=== PATIENT | female | born 1965 ===

== ENCOUNTER → 2021-07-12 15:07 | Outpatient (BNVA) | payer BC, MEDICAID, SELFPAY | PROVIDERS: Visit Provider Family Medicine | DX: I10 Essential (primary) hypertension (principal); Z13.6 Encounter for screening for cardiovascular disorders; Z76.89 Persons encountering health services in other specified circumstances; F43.20 Adjustment disorder, unspecified; G62.9 Polyneuropathy, unspecified; M17.0 Bilateral primary osteoarthritis of knee; Z68.36 Body mass index [BMI] 36.0-36.9, adult; Z71.89 Other specified counseling | CPT/HCPCS: 80053; 85025 ==

== ENCOUNTER 2021-07-16 12:14 | Emergency (ER) | payer BC, MEDICAID, SELFPAY ==
[2021-07-16 12:22] VITALS: BP 148/83; PULSE 88; RESP 17; TEMP 37.6; O2SAT 95
--- NOTE | 2021-07-16 13:55 | CTR_ITS ---
PROCEDURE INFORMATION: Exam: CT Head Without Contrast Exam date and time: 07/16/2021 1:55 PM Age: 56 years old Clinical indication: Pain; Headache not specified; Patient HX: C/O MERCER w unwitnessed seizure during the night TECHNIQUE: Imaging protocol: Computed tomography of the head without contrast. Radiation optimization: All CT scans at this facility use at least one of these dose optimization techniques: automated exposure control; mA and/or kV adjustment per patient size (includes targeted exams where dose is matched to clinical indication); or iterative reconstruction. COMPARISON: No relevant prior studies available. RADIATION DOSE METRICS: Total DLP (mGy-cm): 814.61 FINDINGS: Brain: Normal. No hemorrhage. Unremarkable white matter. No mass effect. Cerebral ventricles: No ventriculomegaly. Paranasal sinuses: Visualized sinuses are unremarkable. No fluid levels. Mastoid air cells: Visualized mastoid air cells are well aerated. Bones/joints: Unremarkable. No acute fracture. Soft tissues: Unremarkable. CT/CT head wo con* [id number] IMPRESSION: No acute intracranial abnormality. Radiation Dose CTDIVOL = (mGy): DLP = 814.61 (mGy-cm)
--- NOTE | 2021-07-16 13:55 | ECG_ITS ---
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 Measurements Intervals Ragan Rate: 68 P: 58 CO: 142 QRS: 28 QRSD: 87 T: 23 QT: 410 QTc: 439 Interpretive Statements SINUS RHYTHM WITH SINUS ARRHYTHMIA NONSPECIFIC T-WAVE ABNORMALITY No previous ECG available for comparison Electronically Signed On 07-16-2021 19:35:04 CDT by Mckay Ragland M.D. [id number]
--- NOTE | 2021-07-16 13:55 | XR_ITS ---
WS: [id number] Portable AP upright chest, 07/16/2021 Clinical Data: seizure Comparison: None. Findings: No nodules, masses or effusions are seen. The heart is normal. The pulmonary vascularity is not increased. No pneumonia or pneumothorax is seen. The aortic arch and descending aorta are minima lly tortuous. XR/XR chest 1V portable [id number] Impression: Atherosclerosis.
--- NOTE | 2021-07-16 14:03 | ED_ITS ---
HPI - Seizure General: Chief Complaint: General Medical Stated Complaint: BLEEDING FROM MOUTH Time Seen by Provider: 07/16/21 12:55 History of Present Illness: HPI Narrative: Patient is a 56-year-old female past medical history of migraines and seizure disorder. Her last seizure was 2016 when they were living in [place]. She has not been on medicines for last 2 years. Her niece went in to check on his morning about 11:00 had a hard time waking her up. When she did get her out of bed she noticed that she had blood in her mouth and 2 small abrasions on the side of her tongue. She returned to her normal mentation soon afterwards. Stated that she has had some occipital pain and all of her head pain which is chronic for her. She has not had any fevers chills nausea vomiting shortness of breath altered mental status or syncope. She does not remember the seizure her previous seizure was a generalized tonic- clonic she was seen in the hospital have 2 in short succession. History was assisted with her son who translated patient does not speak [place] Citizen MD complaint: seizure Onset (ago): hour(s) (6) Description of Episode: bladder incontinence, bowel incontinence and post-event confusion Review of Systems General: Reports: 10 or more systems reviewed and unremarkable except in HPI and below PFSH ED PFSH: Medical History Episcleritis of both eyes Gout Hx of seizure disorder Neuropathy Surgical History History of 3 sections Family History Mother Chronic kidney disease (CKD), Onset Age: 77 Father Cancer throat cancer Brother Cancer liver cancer Brother Cancer colan cancer Social History Smoking and tobacco status: never smoked Alcohol intake: never Household members: children Housing: House Marital status: / Number of children: 3 Number of grandchildren: 7 Highest education level completed: 7th Grade service: No Current occupational status: unemployed Current gender identity: Female Physical Exam Const: COMMON NORMALS: no acute distress, average body habitus and patient oriented x3 EXAM LIMITATIONS: no altered mental status HENMT: COMMON NORMALS: normocephalic and atraumatic HEAD & SCALP: normal to inspection, normocephalic and atraumatic Eye: COMMON NORMALS: Equal, round and reactive pupils present and EOMs intact bilaterally PUPIL: Yes Equal, round and reactive pupils present Neck/C-Spine: COMMON NORMALS: full ROM; negative for no meningeal signs CERVICAL SPINE: Yes cervical ROM normal and No Cervical spine tenderness Resp: COMMON NORMALS: normal respiratory effort, No retractions and No use of accessory muscles Cardio: COMMON NORMALS: regular rate, regular rhythm and No murmurs present (Cardio) RATE: regular rate RHYTHM: regular rhythm GI: COMMON NORMALS: Normal to inspection, nondistended, normoactive bowel sounds present INSPECTION: Yes normal to inspection AUSCULTATION: Yes normoactive bowel sounds Extremity: COMMON NORMALS: normal to inspection Neuro: COMMON NORMALS: patient oriented x3, moves all extremities and no focal motor deficits MENINGEAL SIGNS: No no meningeal signs CRANIAL NERVES: Yes CN normal except as noted SPEECH: speech normal GAIT: Yes Normal gait present SENSORY EXAM: Yes Normal double simultaneous stimulation for sensation MOTOR EXAM: 5/5 motor strength present throughout Psych: COMMON NORMALS: mental status grossly normal Skin: COMMON NORMALS: no rashes or lesions noted GENERAL SKIN EXAM: no rashes or lesions noted Course ED course: Patient did well no other seizure like activity or other neurological changes. CT of the head was normal as was her laboratory work-up. Discussed with patient return precautions and placed referral to neurology. We will have him follow-up with her primary care provider in 3 to 5 days they are appropriate for discharge at this time Vital Signs: Vital signs: Vital Signs Temperature 99.6 F 07/16/21 12:22 Pulse Rate 70 07/16/21 14:04 Respiratory Rate 16 07/16/21 14:04 Blood Pressure 155/89 07/16/21 14:04 Pulse Oximetry 100 07/16/21 14:04 MDM - Seizure MDM Narrative: Medical decision making narrative: Patient is a 56-year-old female here with for seizure in 3 years. She is not currently taking a medicine. Has not had any seizure activity since then. Given the length of time between seizures I think it is appropriate to going work-up is a for seizure. She is mentating normally now has not shown any seizure-like activity is back to her baseline with no prolonged postictal period. We will get a CT EKG chest x-ray and general labs on her. Will most likely not starting medicines on her today but will set her up with outpatient neurology Differential Diagnosis: Seizure Differential Diagnosis: Likely intractable seizure disorder, febrile convulsion, generalized seizure and new onset seizure Lab Data: Labs: Lab Results 07/16/21 07/16/21 Range/Units 14:20 14:20 WBC 7.6 (4.0-10.0) 10^3/ uL RBC 4.74 (4.1-5.3) 10^6/u L Hgb 14.1 (11.5-15.3) g/dL Hct 42.8 (37.0-47.0) % MCV 90.3 (81-99) fl MCH 29.7 (28.0-34.0) pg MCHC 32.9 (30.0-36.0) g/dL RDW 13.2 (12.1-15.1) % Plt Count 223 (130-400) 10^3/c mm MPV 10.1 (7.4-10.4) fL Neut % (Auto) 84.3 % Lymph % (Auto) 9.1 % [place] % (Auto) 5.7 % Eos % (Auto) 0.5 % Baso % (Auto) 0.1 % Neut # (Auto) 6.42 (1.8-7.7) 10^3/u L Lymph # (Auto) 0.7 L (0.8-4.8) 10^3/u L [place] # (Auto) 0.4 (0.2-0.9) 10^3/u L Eos # (Auto) 0.0 (0.0-0.8) 10^3/u L Baso # (Auto) 0.0 (0.0-0.1) 10^3/u L Nucleated RBC % (a uto) 0 % Nucleated RBCs # 0.0 /100WBC Sodium 139 (136-145) mmol/L Potassium 4.3 (3.5-5.1) mmol/L Chloride 107 (98-107) mmol/L Carbon Dioxide 23 (22-29) mmol/L Anion Gap 13.3 (5-19) BUN 11 (6-20) mg/dL Creatinine 0.7 (0.5-0.9) mg/dL GFR Calculation 86.2 L (90-130) mL/min Glucose 117 H (65-115) mg/dL Calculated Osmolal ity 288 (285-295) mOsm/k g Calcium 8.9 (8.5-10.5) mg/dL Magnesium 2.2 (1.7-2.3) mg/dL Total Bilirubin 0.2 (0.15-1.2) mg/dL AST 23 (0-32) U/L ALT 16 (0-33) U/L Alkaline Phosphata se 86 (35-105) IU/L Total Protein 6.9 (6.6-8.7) g/dL Albumin 4.0 (3.5-5.2) g/dL Globulin 2.9 (1.3-4.6) g/dL EKG Data^: EKG 1: Attestation: I personally reviewed and interpreted this EKG as follows: EKG interpretation date: 07/16/21 EKG interpretation time: 15:59 Prior EKG tracings: not available for review Interpretation: Sinus rhythm normal sinus rhythm no evidence of ischemia or infarct good R wave progression normal axis ease normal PA intervals Discharge Plan Discharge Patient Disposition: Home Clinical Impression: Seizure Condition: Stable Prescriptions: No Action gabapentin 800 mg tablet 800 mg PO DAILY Qty: 90 RF: 0 meloxicam [Mobic] 15 mg tablet 15 mg PO DAILY Qty: 30 RF: 0 atenolol 25 mg tablet 25 mg PO DAILY Qty: 30 RF: 0 ficdluaaxa-ogdlhocfizzeg-rmsj 50-325-40 mg tablet 1 tab PO BID PRN (Reason: pain) 30 Days Qty: 60 RF: 0 fluorometholone 0.1 % drops,suspension 2 drp ophthalmic (eye) .once daily 30 Days Qty: 10 RF: 2 furosemide 20 mg tablet 20 mg PO DAILY 30 Days Qty: 30 RF: 0 citalopram [Celexa] 10 mg tablet 10 mg PO DAILY Qty: 30 RF: 0 Discharge Orders: Discharge ED (Routine); Ordered 07/16/21 Ordered By: Louie Brown Referrals: Keren Mclaughlin MD [Physician] - 4-7 days Lianna Hickman DO [Primary Care Provider] - 1-3 days Louie Brown MD [Emergency Provider] - Discharge Activity: Resume usual activity Patient Instructions: Seizures Activity Restrictions/Additional Instructions: follow-up with your primary physician in 3 to 5 days. You should be getting a call from a neurologist for follow-up appointment. If you do not hear within 7 days contact your primary care provider. Return the emergency department with any more seizures particularly if they last for more than 5 minutes or if she is not back to her normal self after about 30 minutes after his seizure or if there are any changes. Coding Level of Care Code ED Appliance Mechanic for Rick Fwd Exam Comprehensive
[2021-07-16 14:04] VITALS: BP 155/89; PULSE 70; RESP 16; O2SAT 100
[2021-07-16 14:26] LABS: Basophils % 0.1 %; Eosinophils % 0.5 %; Hematocrit 42.8 % (37.0-47.0); Hemoglobin 14.1 g/dL (11.5-15.3); Lymphocytes # 0.7 10^3/uL (0.8-4.8); Lymphocytes % 9.1 %; Mean Corpuscular HGB Conc 32.9 g/dL (30.0-36.0); Mean Corpuscular Hemoglobin 29.7 pg (28.0-34.0); Mean Corpuscular Volume 90.3 fl (81-99); Mean Platelet Volume 10.1 fL (7.4-10.4); Monocytes # 0.4 10^3/uL (0.2-0.9); Monocytes % 5.7 %; Neutrophils # 6.42 10^3/uL (1.8-7.7); Neutrophils % 84.3 %; Nucleated Red Blood Cells % 0 %; Platelet Count 223 10^3/cmm (130-400); Red Blood Count 4.74 10^6/uL (4.1-5.3); Red Cell Distribution Width 13.2 % (12.1-15.1); White Blood Count 7.6 10^3/uL (4.0-10.0)
[2021-07-16 14:51] LABS: Alanine Aminotransferase 16 U/L (0-33); Alkaline Phosphatase 86 IU/L (35-105); Aspartate Amino Transferase 23 U/L (0-32); Blood Urea Nitrogen 11 mg/dL (6-20); Calcium 8.9 mg/dL (8.5-10.5); Carbon Dioxide 23 mmol/L (22-29); Chloride 107 mmol/L (98-107); Creatinine Clr Calc Pharmacy 93.1271; Globulin 2.9 g/dL (1.3-4.6); Glomerular Filtration Rate 86.2 mL/min (90-130); Glucose 117 mg/dL (65-115); Magnesium 2.2 mg/dL (1.7-2.3); Osmolality Calculated 288 mOsm/kg (285-295); Sodium 139 mmol/L (136-145); Total Bilirubin 0.2 mg/dL (0.15-1.2); Total Protein 6.9 g/dL (6.6-8.7)
[2021-07-16 15:01] LABS: Anion Gap 13.3 (5-19); Potassium 4.3 mmol/L (3.5-5.1)
[2021-07-16 16:24] VITALS: BP 164/75; PULSE 61; RESP 16; O2SAT 95
== END 2021-07-16 16:25 | disposition home or self-care (01) ==
PROVIDERS: Emergency Provider Family Medicine; PCP Family Medicine
DX: G40.909 Epilepsy, unspecified, not intractable, without status epilepticus (principal)
CPT/HCPCS: 70450; 71045; 80053; 83735; 85025; 93005; 99283

== ENCOUNTER → 2021-08-10 14:49 | Outpatient (BNVA) | payer BC, MEDICAID, SELFPAY | PROVIDERS: PCP Family Medicine; Visit Provider Family Medicine | DX: F43.21 Adjustment disorder with depressed mood (principal); Z09 Encounter for follow-up examination after completed treatment for conditions other than malignant neoplasm; M17.0 Bilateral primary osteoarthritis of knee; G62.9 Polyneuropathy, unspecified; I10 Essential (primary) hypertension; Z86.69 Personal history of other diseases of the nervous system and sense organs | CPT/HCPCS: 84550 ==

== ENCOUNTER → 2021-08-30 14:04 | Outpatient (BNVA) | payer BC, MEDICAID, SELFPAY | PROVIDERS: PCP Family Medicine; Visit Provider Nurse Practitioner | DX: G40.909 Epilepsy, unspecified, not intractable, without status epilepticus (principal); E66.3 Overweight; Z68.38 Body mass index [BMI] 38.0-38.9, adult | CPT/HCPCS: 99204 ==

== ENCOUNTER → 2021-11-08 11:55 | Outpatient (BNVA) | payer BC, MEDICAID, SELFPAY | PROVIDERS: PCP Family Medicine; Visit Provider Family Medicine | DX: I10 Essential (primary) hypertension (principal) | CPT/HCPCS: 80061; 82043 ==

== ENCOUNTER 2022-04-01 14:14 | Emergency (ER) | payer BC, MEDICAID, SELFPAY ==
[2022-04-01 14:35] VITALS: BP 133/65; PULSE 88; RESP 18; TEMP 37.7; O2SAT 97
[2022-04-01 14:49] VITALS: BP 195/92; PULSE 48; RESP 18; O2SAT 96
--- NOTE | 2022-04-01 14:50 | XR_ITS ---
WS: [id number] Portable AP upright chest, 04/01/2022 Clinical Data: fever Comparison: Portable chest, 07/16/2021 Findings: No nodules, masses or effusions are seen. The heart is normal. The pulmonary vascularity is not increased. No pneumonia or pneumothorax is seen. The aortic arch and descending thoracic aorta a re minimally tortuous. XR/XR chest 1V portable [id number] Impression: Negative chest.
--- NOTE | 2022-04-01 14:52 | W.ED.NAVMDI ---
HPI - Nausea/Vomiting/Diarrhea General: Chief complaint: Nausea/Vomiting/Diarrhea Stated complaint: body tingly, headache, fever, sore throat Time Seen by Provider: 04/01/22 14:44 History of Present Illness: Patient is a 56-year-old female comes to the ED with fever, nausea and vomiting. Patient's symptoms started 4 days ago. She has nasal congestion and drainage, dry cough, sore throat, body aches. She is currently nauseous and has vomited 4 times today and vomited 4 times yesterday. Associated nausea: Yes Associated symtoms: Reports nausea; Denies change in vision, chest pain, dysuria, fatigue, headache(s) or palpitations Review of Systems Const: Reports: fever(s), chills and body aches; Denies: fatigue Eyes: Denies: change in vision or eye discomfort ENMT: Reports: throat pain, nasal discharge and nasal congestion; Denies: odynophagia Card: Denies: chest pain, palpitations, edema, swelling of feet/ankles, dyspnea on exertion or orthopnea Resp: Reports: non-productive cough; Denies: dyspnea or productive cough GI: Reports: nausea and vomiting; Denies: abdominal pain, diarrhea, constipation or hematochezia : Denies: flank pain, dysuria or hematuria Musc: Denies: neck pain, back pain or extremity swelling Skin/Breast: Denies: rash or new lesions Neuro: Denies: headache(s), numbness in extremities or weakness in extremities PFSH ED PFSH: Medical History Epilepsy Episcleritis of both eyes Gout Hx of seizure disorder Neuropathy Surgical History History of 3 sections Family History Mother Chronic kidney disease (CKD), Onset Age: 77 Father Cancer throat cancer Brother Cancer liver cancer Brother Cancer colan cancer Social History Smoking and tobacco status: never smoked Alcohol intake: never Household members: children Housing: House Marital status: / Number of children: 3 Number of grandchildren: 7 Highest education level completed: 7th Grade service: No Current occupational status: unemployed History of recent travel: No Current gender identity: Female Physical Exam Const: COMMON NORMALS: patient oriented x3 and alert GENERAL APPEARANCE: cooperative HENMT: COMMON NORMALS: normocephalic HEAD & SCALP: normocephalic NOSE: Nasal discharge present clear MOUTH: moist mucous membranes abnormal Details: parched THROAT: posterior oropharynx normal and uvula midline Eye: COMMON NORMALS: Equal, round and reactive pupils present PUPIL: Yes Equal, round and reactive pupils present Neck/C-Spine: COMMON NORMALS: supple GENERAL: Yes normal visual inspection Resp: COMMON NORMALS: normal respiratory effort, No retractions, No use of accessory muscles and clear to auscultation bilaterally AUSCULTATION: clear to auscultation bilaterally Cardio: COMMON NORMALS: regular rate, regular rhythm, S1 normal heart sound present, S2 normal heart sound present, No gallops present (Cardio), No clicks present (Cardio), No murmurs present (Cardio) and Peripheral pulses 2+ throughout RATE: regular rate RHYTHM: regular rhythm HEART SOUNDS: S1 normal heart sound present and S2 normal heart sound present PERIPHERAL PULSES: Peripheral pulses 2+ throughout GI: COMMON NORMALS: Normal to inspection, nondistended, normoactive bowel sounds present, Soft to palpation, non-tender and no masses PALPATION: Yes Soft to palpation : COMMON NORMALS: Yes no CVA tenderness BLADDER/KIDNEY EXAM: Yes no CVA tenderness Back/Pelvis: COMMON NORMALS: no CVA tenderness Extremity: COMMON NORMALS: normal to inspection and no pedal edema Neuro: COMMON NORMALS: patient oriented x3 and moves all extremities SENSORIUM/ORIENTATION: Yes alert Skin: GENERAL SKIN EXAM: dry skin Course Vital Signs: Vital signs: Vital Signs Temperature 99.8 F H 04/01/22 14:35 Pulse Rate 93 04/01/22 17:21 Respiratory Rate 18 04/01/22 14:49 Blood Pressure 112/60 04/01/22 17:21 Pulse Oximetry 94 04/01/22 17:21 MDM - Nausea/Vomiting/Diarrhea Medical Decision Making Patient is a 56-year-old female comes to the ED with nausea and vomiting. Patient also has fever and body aches. Vitals are stable. Patient had some dry oral mucous membranes but rest of exam was benign. Chest x-ray showed no acute findings. CBC and CMP were unremarkable. Influenza and COVID test were negative. Patient was given 1 L of IV fluids and antinausea meds and her symptoms improved. She was able to keep p.o. fluids down and was stable for discharge home. Patient was diagnosed with viral syndrome and mild dehydration and sent home with a prescription of Zofran for nausea. She is told to follow-up with her PCP in the next week for reevaluation. Return to ED precautions given. Patient understood and agreed with plan. Lab Data I reviewed the patient's lab results. : 04/01/22 15:15 04/01/22 15:15 Radiology Impressions Chest X-Ray 04/01/22 14:50 Impression: Negative chest. Laboratory Results WBC 10.1 10^3/uL (4.0-10.0) H 04/01/22 15:15 RBC 4.92 10^6/uL (4.1-5.3) 04/01/22 15:15 Hgb 14.6 g/dL (11.5-15.3) 04/01/22 15:15 Hct 45.0 % (37.0-47.0) 04/01/22 15:15 MCV 91.5 fl (81-99) 04/01/22 15:15 MCH 29.7 pg (28.0-34.0) 04/01/22 15:15 MCHC 32.4 g/dL (30.0-36.0) 04/01/22 15:15 RDW 13.9 % (12.1-15.1) 04/01/22 15:15 Plt Count 268 10^3/cmm (130-400) 04/01/22 15:15 MPV 10.1 fL (7.4-10.4) 04/01/22 15:15 Neut % (Auto) 83.6 % 04/01/22 15:15 Lymph % (Auto) 6.6 % 04/01/22 15:15 [place] % (Auto) 8.1 % 04/01/22 15:15 Eos % (Auto) 0.9 % 04/01/22 15:15 Baso % (Auto) 0.4 % 04/01/22 15:15 Neut # (Auto) 8.45 10^3/uL (1.8-7.7) H 04/01/22 15:15 Lymph # (Auto) 0.7 10^3/uL (0.8-4.8) L 04/01/22 15:15 [place] # (Auto) 0.8 10^3/uL (0.2-0.9) 04/01/22 15:15 Eos # (Auto) 0.1 10^3/uL (0.0-0.8) 04/01/22 15:15 Baso # (Auto) 0.0 10^3/uL (0.0-0.1) 04/01/22 15:15 Nucleated RBC % (auto) 0 % 04/01/22 15:15 Nucleated RBCs # 0.0 /100WBC 04/01/22 15:15 Sodium 137 mmol/L (136-145) 04/01/22 15:15 Potassium 4.0 mmol/L (3.5-5.1) 04/01/22 15:15 Chloride 102 mmol/L (98-107) 04/01/22 15:15 Carbon Dioxide 24 mmol/L (22-29) 04/01/22 15:15 Anion Gap 15.0 (5-19) 04/01/22 15:15 BUN 11 mg/dL (6-20) 04/01/22 15:15 Creatinine 1.0 mg/dL (0.5-0.9) H 04/01/22 15:15 GFR Calculation 57.1 mL/min (90-130) L 04/01/22 15:15 Glucose 103 mg/dL (65-115) 04/01/22 15:15 Calculated Osmolality 284 mOsm/kg (285-295) L 04/01/22 15:15 Calcium 10.1 mg/dL (8.5-10.5) 04/01/22 15:15 Total Bilirubin 0.3 mg/dL (0.15-1.2) 04/01/22 15:15 AST 21 U/L (0-32) 04/01/22 15:15 ALT 19 U/L (0-33) 04/01/22 15:15 Alkaline Phosphatase 119 IU/L (35-105) H 04/01/22 15:15 Total Protein 7.7 g/dL (6.6-8.7) 04/01/22 15:15 Albumin 4.6 g/dL (3.5-5.2) 04/01/22 15:15 Globulin 3.1 g/dL (1.3-4.6) 04/01/22 15:15 Lipase 22 U/L (13-60) 04/01/22 15:15 Nasal Influ A H1 2009 PCR Not detected (NOT DETECT) 04/01/22 15:40 Coronavirus 229E (PCR) Not detected (NOT DETECT) 04/01/22 15:40 Human Metapneumovir PCR Not detected (NOT DETECT) 04/01/22 19:58 Influenza A (H1) PCR Not detected (NOT DETECT) 04/01/22 15:40 Influenza A (H3) PCR Not detected (NOT DETECT) 04/01/22 15:40 Influenza Type A Ag Cancelled 04/01/22 15:40 Influenza Type A (PCR) Not detected (NOT DETECT) 04/01/22 15:40 Influenza Type B Ag Cancelled 04/01/22 15:40 Influenza Type B (PCR) Not detected (NOT DETECT) 04/01/22 15:40 Entero/Rhino (PCR) Detected (NOT DETECT) A 04/01/22 19:58 SARS-CoV-2 (PCR) Not detected (NOT DETECT) 04/01/22 15:40 Group A Strep Rapid Negative (Negative) 04/01/22 15:40 Discharge Plan Discharge Patient Disposition: Home Clinical Impression: Viral syndrome, Mild dehydration Condition: Stable Prescriptions: New ondansetron 4 mg tablet,disintegrating 4 mg PO Q8H PRN (Reason: nausea and vomiting) Qty: 20 0RF No Action txesqiyonk-dvserpdxayebw-vfqi 50-325-40 mg tablet 1 tab PO BID PRN (Reason: pain) 30 Days Qty: 60 0RF fluorometholone 0.1 % drops,suspension 2 drp ophthalmic (eye) .once daily 30 Days Qty: 10 2RF atenolol 25 mg tablet 25 mg PO DAILY Qty: 90 1RF furosemide 20 mg tablet 20 mg PO DAILY 30 Days Qty: 90 1RF gabapentin 800 mg tablet 800 mg PO DAILY Qty: 90 1RF citalopram [Celexa] 20 mg tablet 20 mg PO DAILY Qty: 90 1RF diclofenac sodium 50 mg tablet,delayed release (DR/EC) 50 mg PO BID 90 Days Qty: 180 1RF topiramate [Topamax] 50 mg tablet 50 mg PO BID Qty: 120 6RF Rx Instructions: 1/2 tab twice daily for 1 week; then 1 tab twice daily for 1 week then 2 tabs twice daily thereafter omeprazole 40 mg capsule,delayed release(DR/EC) 40 mg PO DAILY Qty: 90 0RF Discharge Orders: Discharge ED (Routine); Ordered 04/01/22 Ordered By: Aries Gardner Referrals: Lianna Hickman DO [Primary Care Provider] - Discharge Diet: Regular Discharge Activity: Increase activity as tolerated Patient Instructions: Viral Syndrome (ED) Activity Restrictions/Additional Instructions: Follow-up with medical provider as directed in the next week for reevaluation. Call [facility] tomorrow morning to find out COVID and influenza test results. Make sure to drink plenty of fluids and stay hydrated. Take medications as prescribed. Return to the ER or your medical provider if condition worsens. Please read and understand discharge instructions. Thank you for choosing [facility] for your healthcare needs today. Please realize this is an emergency room and that we are providing you with a medical screening exam and this may not be complete and all inclusive of all the testing and or work up that you may need to determine your ailment or severity of your illness. It is very important that you follow up as instructed or that you return to the Emergency Department should you have concerns or if your condition changes or worsens in any way. Coding Level of Care Code ED Appeals Specialist for Rick Washburn Exam Comprehensive
[2022-04-01 15:22] LABS: Basophils % 0.4 %; Eosinophils # 0.1 10^3/uL (0.0-0.8); Eosinophils % 0.9 %; Hemoglobin 14.6 g/dL (11.5-15.3); Lymphocytes # 0.7 10^3/uL (0.8-4.8); Lymphocytes % 6.6 %; Mean Corpuscular HGB Conc 32.4 g/dL (30.0-36.0); Mean Corpuscular Hemoglobin 29.7 pg (28.0-34.0); Mean Corpuscular Volume 91.5 fl (81-99); Mean Platelet Volume 10.1 fL (7.4-10.4); Monocytes # 0.8 10^3/uL (0.2-0.9); Monocytes % 8.1 %; Neutrophils # 8.45 10^3/uL (1.8-7.7); Neutrophils % 83.6 %; Nucleated Red Blood Cells % 0 %; Platelet Count 268 10^3/cmm (130-400); Red Blood Count 4.92 10^6/uL (4.1-5.3); Red Cell Distribution Width 13.9 % (12.1-15.1); White Blood Count 10.1 10^3/uL (4.0-10.0)
[2022-04-01] MEDS: ondansetron 2 mg/ML SDV 2 mL 4 MG IVP (15:41)
[2022-04-01] MEDS: sodium chloride 0.9% 1,000 ML 999 ML IV (15:41)
[2022-04-01 16:12] LABS: Alanine Aminotransferase 19 U/L (0-33); Albumin Level 4.6 g/dL (3.5-5.2); Alkaline Phosphatase 119 IU/L (35-105); Aspartate Amino Transferase 21 U/L (0-32); Blood Urea Nitrogen 11 mg/dL (6-20); Calcium 10.1 mg/dL (8.5-10.5); Carbon Dioxide 24 mmol/L (22-29); Chloride 102 mmol/L (98-107); Globulin 3.1 g/dL (1.3-4.6); Glomerular Filtration Rate 57.1 mL/min (90-130); Glucose 103 mg/dL (65-115); Lipase 22 U/L (13-60); Osmolality Calculated 284 mOsm/kg (285-295); Sodium 137 mmol/L (136-145); Total Bilirubin 0.3 mg/dL (0.15-1.2); Total Protein 7.7 g/dL (6.6-8.7)
[2022-04-01 17:21] VITALS: BP 112/60; PULSE 93; O2SAT 94
[2022-04-01 17:49] LABS: Rapid Strep A Test Negative (Negative)
[2022-04-01 19:33] LABS: Adenovirus Not Detected (NOT DETECT); Chlamydia Pneumoniae Not Detected (NOT DETECT); Coronavirus 229E,HKU1,NL63,OC4 Not Detected (NOT DETECT); Human Metapneumovirus Not Detected (NOT DETECT); Human Rhinovirus/Enterovirus Detected (NOT DETECT); Influenza A Not Detected (NOT DETECT); Influenza A H1 Not Detected (NOT DETECT); Influenza A H1-2009 Not Detected (NOT DETECT); Influenza A H3 Not Detected (NOT DETECT); Influenza B Not Detected (NOT DETECT); Mycoplasma Pneumoniae Not Detected (NOT DETECT); Parainfluenza Virus Type 1 Not Detected (NOT DETECT); Parainfluenza Virus Type 2 Not Detected (NOT DETECT); Parainfluenza Virus Type 3 Not Detected (NOT DETECT); Parainfluenza Virus Type 4 Not Detected (NOT DETECT); Respiratory Syncytial Virus A Not Detected (NOT DETECT); Respiratory Syncytial Virus B Not Detected (NOT DETECT); SARS-COV-2 Not Detected (NOT DETECT)
[2022-04-01 19:58] LABS: Human Metapneumovirus Not Detected (NOT DETECT); Human Rhinovirus/Enterovirus Detected (NOT DETECT); Results from Genmark
[2022-04-01 19:59] LABS: Results from Genmark
== END 2022-04-01 17:23 | disposition home or self-care (01) ==
PROVIDERS: Emergency Provider Physician Assistant; PCP Family Medicine
DX: B34.9 Viral infection, unspecified (principal); E86.0 Dehydration; G40.909 Epilepsy, unspecified, not intractable, without status epilepticus
CPT/HCPCS: 71045; 80053; 83690; 85025; 87081; 87631; 87635; 87801; 87880; 96361; 96374; 99284; J2405; J7030

== ENCOUNTER 2022-10-31 09:42 | Day surgery (SDC) | payer BC, MEDICAID, SELFPAY ==
[2022-10-28 14:37] VITALS: BMI 36.6
[2022-10-31 10:11] VITALS: BP 142/80; PULSE 59; RESP 16; TEMP 36.1; O2SAT 98
[2022-10-31] MEDS: sodium chloride 0.9% 1,000 ML 30 ML IV (10:20)
--- NOTE | 2022-10-31 10:36 | ANES.PREANE2 ---
Pre-Anesthetic Assessment Height/Weight: Height 1.57 m Weight 90.718 kg Temp Pulse Resp BP Pulse Ox O2 Del Method 96.9 F L 59 L 16 142/80 98 10/31/22 10:11 10/31/22 10:11 10/31/22 10:11 10/31/22 10:11 10/31/22 10:11 10/31/22 10:11 Preop Diagnosis: History of colon polyps Operation Date: 10/31/22 11:00 Proposed Procedures p Colonoscopy 54083,Z86.010(Not Applicable) - Tanner Salgado MD Was Beta Harvey taken within 24 hours: Yes Last intake: Intake Last Liquid Date 10/30/22 Last Liquid Time 00:00 Last Solid Date 10/29/22 Last Solid Time 00:00 Social No alcohol and No tobacco Exam alert, oriented x 3, clear to auscultation bilaterally and regular rate & rhythm Nonenglish speaking Airway Submandibular: within normal limits Cervical ROM: within normal limits Mallampati: Class II Dentition: full History/ROS No significant history except as noted and No significant complaints Pulmonary None reported CV/HEM Hypertension None reported Hepatic None reported GI None reported Metabolic None reported Musc/skel None reported Neuropsych Seizure none recently Anesthetic Plan ASA status: 2 Anesthesia: Anesthesia Evaluation and MAC Risk of > 500 ml blood loss (7ml/kg in children): No Medications/Allergies Home Medications Medication Instructions Recorded Confirmed Last Taken Type fluorometholone 0.1 % eye 2 drp ophthalmic (eye) .once daily 07/13/21 10/31/22 10/30/22 Rx drops,suspension 30 days #10 mL ondansetron 4 mg disintegrating 4 mg PO Q8H PRN nausea and 04/01/22 10/31/22 10/30/22 Rx tablet vomiting #20 tabs atenolol 25 mg tablet 25 mg PO DAILY #90 tabs 07/22/22 10/31/22 10/30/22 Rx adbhbytnhs-vrvzhqsbkqiaz-zqtnaijr 1 tab PO BID PRN pain 30 days #60 07/22/22 10/31/22 10/30/22 Rx 50 mg-325 mg-40 mg tablet tabs citalopram 20 mg tablet (Celexa) 20 mg PO DAILY #90 tabs 08/26/22 12/05/22 12/04/22 Rx diclofenac sodium 50 mg 50 mg PO BID 90 days #180 tabs 07/22/22 10/31/22 10/30/22 Rx tablet,delayed release furosemide 20 mg tablet 20 mg PO DAILY 90 days #90 tabs 07/22/22 10/31/22 10/30/22 Rx gabapentin 800 mg tablet See Rx Instructions .Route 07/22/22 10/31/22 10/30/22 Rx .COMPLEX 90 days #90 tabs omeprazole 40 mg capsule,delayed 40 mg PO DAILY #90 caps 07/22/22 10/31/22 10/30/22 Rx release topiramate 100 mg tablet 100 mg PO BID #180 tabs 07/22/22 10/31/22 10/30/22 Rx Allergies Allergy/AdvReac Type Severity Reaction Status Date / Time No Known Allergies Allergy Verified 10/28/22 14:35 Current Medications Generic Name Dose Route Start Last Admin Trade Name Freq PRN Reason Stop Dose Admin Sodium Chloride 1,000 mls @ 30 mls/hr 10/31/22 10:00 10/31/22 10:20 Sodium Chloride 0.9% IV 30 mls/hr .Q24H RACHEL Administration PFSH Anesthesia Medical History Epilepsy Episcleritis of both eyes Gout Hx of seizure disorder Neuropathy Surgical History History of 3 sections Family History Mother Chronic kidney disease (CKD), Onset Age: 77 Father Cancer throat cancer Brother Cancer liver cancer Brother Cancer colan cancer Social History Smoking and tobacco status: never smoked Alcohol intake: never Household members: children Housing: House Marital status: / Number of children: 3 Number of grandchildren: 7 Highest education level completed: 7th Grade service: No Current occupational status: unemployed History of recent travel: No Current gender identity: Female Data Anesthesia Cardiac Studies: No Data to Display
--- NOTE | 2022-10-31 10:51 | W.PM.OPSFHP ---
Same Day Surgery H&P Indication for Procedure/HPI DATE OF PROCEDURE: October 31, 2022 CHIEF COMPLAINT/INDICATIONFOR SURGICAL PROCEDURE: Colon polyps PREOP DIAGNOSIS: History of colon polyps PLANNED PROCEDURE: Operation Date: 10/31/22 11:00 Proposed Procedures p Colonoscopy [id number],Z86.010(Not Applicable) - Tanner Salgado MD 09/05/2022 This is a pleasant 57 years old female patient comes today escorted by her son and daughter, to discuss surveillance colonoscopy.? 5 years ago patient had a colonoscopy in [place] and had colon polyps removed.? Denies personal history of colon cancer or bleeding per rectum yet she does report her brother had history of colon cancer age of 57. Patient speaks little Czech and her son does translate for her. 10/31/2022 Patient comes today for surveillance colonoscopy ROS All systems have been reviewed negative except as for the above or per problem list. Medications/Allergies* Allergies/Adverse Reactions Allergy/AdvReac Type Severity Reaction Status Date / Time No Known Allergies Allergy Verified 10/31/22 10:51 Current Medications: Generic Name Dose Route Start Last Admin Trade Name Freq PRN Reason Stop Dose Admin Sodium Chloride 1,000 mls @ 30 mls/hr 10/31/22 10:00 10/31/22 10:20 Sodium Chloride 0.9% IV 30 mls/hr .Q24H RACHEL Administration Pertinent History/Comorbid Conditions* Medical History (Updated 07/25/22 @ 06:44 by Lianna Hickman DO) Epilepsy Episcleritis of both eyes Gout Hx of seizure disorder Neuropathy Surgical History (Updated 07/12/21 @ 14:24 by Lianna Hickman DO) History of 3 sections Family History (Updated 07/12/21 @ 14:01 by Jessenia Song) Brother Brother Father Mother Chronic kidney disease (CKD) Mother, Onset Age: 77 Cancer Father throat cancer Brother liver cancer Brother colan cancer Social History Smoking and tobacco status: never smoked Alcohol intake: never Household members: children Housing: House Marital status: / Number of children: 3 Number of grandchildren: 7 Highest education level completed: 7th Grade service: No Current occupational status: unemployed History of recent travel: No Current gender identity: Female Pertinent Exam Findings alert, oriented x 3, regular rate & rhythm and procedure specific exam findings (Abdominal exam nontender nondistended soft) Recommendations Surgery/Procedure today (Colonoscopy with possible biopsy) Coding Level of Care Code Acute Shipping And Receiving Coordinator for Rick Washburn
[2022-10-31 11:13] VITALS: BP 93/62; PULSE 67; RESP 20; TEMP 36.3; O2SAT 96
[2022-10-31 11:26] VITALS: BP 114/68; PULSE 62; RESP 18; O2SAT 96
--- NOTE | 2022-10-31 15:31 | ANE.PACU2 ---
Inpatient post-anesthesia follow up: Airway intact: Yes Vital signs: Temperature 97.3 F Pulse Rate 62 Respiratory Rate 18 Blood Pressure 114/68 Pulse Oximetry 96 Oxygen Delivery Me thod Room Air Oxygen Flow Rate 3 Fraction of Inspir ed Oxygen Hydration adequate: Yes Nausea and vomiting: No Pain level: 1 Mental status: Baseline
== END 2022-10-31 11:45 | disposition home or self-care (01) ==
PROVIDERS: PCP Family Medicine; Visit Provider Surgery
PROC: 0DJD8ZZ Inspection of Lower Intestinal Tract, Via Natural or Artificial Opening Endoscopic (ICD-10-PCS; CPT 45378; principal; 2022-10-31 11:00)
DX: Z12.11 Encounter for screening for malignant neoplasm of colon (principal); Z86.010 Personal history of colon polyps; K57.30 Diverticulosis of large intestine without perforation or abscess without bleeding
CPT/HCPCS: 45378; J2704; J7030

== ENCOUNTER → 2023-03-16 09:12 | Outpatient (BNVA) | payer BC, MEDICAID, SELFPAY | PROVIDERS: PCP Family Medicine; Visit Provider Nurse Practitioner Family | DX: M25.512 Pain in left shoulder (principal) | CPT/HCPCS: 73030 ==

== ENCOUNTER 2023-04-20 14:30 | Outpatient (CLI) | payer BC, MEDICAID, SELFPAY ==
--- NOTE | 2023-04-20 14:30 | MR_ITS ---
WS: [id number] MRI LEFT SHOULDER HISTORY: pain COMPARISON: Shoulder radiograph 03/16/2023 TECHNIQUE: Multiplanar sequences of the shoulder joint are submitted. Moderate AC joint narrowing. Osteophytic ridging around the distal clavicle and acromion measuring 3. 5 mm. These osteophytes encroach upon the supraspinatus muscle at the level of the glenoid. Increase fluid signal at the AC ligament. Increase fluid in the subacromial and subdeltoid bursa. There is als o subacromial impingement by an osteophyte from the distal undersurface of the acromion encroaching u chuck the supraspinatus tendon. No os acromion. Biceps tendon is very difficult to visualize within the bicipital groove. There is a subchondral cyst at the bicipital groove mildly encroaching into the bi cipital groove. Mild tendinopathy in the distal supraspinatus tendon. There is a bursal surface tear in the supraspin atus tendon at the level of the acromion and AC joint. No muscle atrophy or edema. No labral tear. MR/MR shoulder LT wo con* [id number] IMPRESSION: 1. Moderate AC joint arthritis with osteophyte encroachment upon the supraspin atus tendon. 2. Moderate subacromial impingement contacting the distal supraspinatus muscle . There is an associated bursal surface tear of the supraspinatus. Partial tear with no retraction. 3. Biceps tendon is not visualized within the bicipital groove. Bicipital groo ve is being distorted by a subchondral cyst.
== END 2023-04-20 14:31 | disposition home or self-care (01) ==
LOC: RAD 14:36
PROVIDERS: PCP Family Medicine; Visit Provider Nurse Practitioner Family
DX: M19.012 Primary osteoarthritis, left shoulder (principal); M25.712 Osteophyte, left shoulder; M75.102 Unspecified rotator cuff tear or rupture of left shoulder, not specified as traumatic
CPT/HCPCS: 73221

== ENCOUNTER → 2023-05-12 15:00 | Outpatient (BNVA) | payer BC, MEDICAID, SELFPAY | PROVIDERS: PCP Family Medicine; Visit Provider Obstetrics & Gynecology | DX: Z12.4 Encounter for screening for malignant neoplasm of cervix (principal) | CPT/HCPCS: 87624 ==

== ENCOUNTER → 2023-05-17 13:30 | Outpatient (BNVA) | payer BC, MEDICAID, SELFPAY | PROVIDERS: PCP Family Medicine; Visit Provider Psychiatry & Neurology Neurology | DX: G40.909 Epilepsy, unspecified, not intractable, without status epilepticus (principal); Z86.69 Personal history of other diseases of the nervous system and sense organs | CPT/HCPCS: 82306; 82607; 82746; 83090; 83735; 83921; 84439; 84481; 86592; 86780 ==

== ENCOUNTER 2023-06-06 13:38 | Outpatient (CLI) | payer BC, MEDICAID, SELFPAY ==
--- NOTE | 2023-06-06 14:00 | USCV_ITS ---
Dagmar Goodrich Age: 58 Gender: F : 1965 Exam Date: 06/06/2023 14:21 Ordering Phys: Keren Mclaughlin MD Technologist: CT Exam Location: [facility] [place] Indication: cp BP: 124 / 69 HR: 49 Rhythm: Sinus Technical Quality: Adequate MEASUREMENTS (Male / Female) Normal Values 2D ECHO LV Diastolic Diameter PLAX 4.6 cm 4.2 - 5.9 / 3.9 - 5.3 cm LV Systolic Diameter PLAX 2.9 cm IVS Diastolic Thickness 0.7 cm 0.6 - 1.0 / 0.6 - 0.9 cm IVS Systolic Thickness 1.2 cm LVPW Diastolic Thickness 1.1 cm 0.6 - 1.0 / 0.6 - 0.9 cm LVPW Systolic Thickness 1.5 cm LVOT Diameter 2.0 cm LV Ejection Fraction 2D Teich 65.8 % LV Ejection Fraction MOD 2C 69.7 % LV Ejection Fraction 2C AL 70.4 % LA Diameter 3.9 cm Aorta at Sinotubular Diameter 2.8 cm IVC Diameter 1.8 cm M-MODE Aortic Annulus Diameter 2.8 cm LA Ao Ratio MM 1.4 MV E Point Septal Separation 0.5 cm DOPPLER AV Peak Velocity 108.0 cm/s LVOT Peak Velocity 96.0 cm/s AV Area Cont Eq vti 2.8 cm squared AV Area Cont Eq pk 2.9 cm squared MV Peak Velocity 90.0 cm/s MV Area PHT 3.7 cm squared Mitral E to A Ratio 1.0 MV E' Velocity 45.5 cm/s Mitral E to MV E' Ratio 5.9 Mitral E to LV E' Lateral Ratio 7.4 Mitral E to LV E' Septal Ratio 4.9 TR Peak Velocity 275.5 cm/s TR Peak Gradient 30.4 mmHg TR Mean Velocity 226.8 cm/s TR Mean Gradient 22.7 mmHg TR Velocity Time Integral 107.5 cm TV Peak E Velocity 104.0 cm/s Right Atrial Pressure 3.0 mmHg Pulmonary Artery Systolic Pressu 33.4 mmHg PV Peak Velocity 69.0 cm/s FINDINGS Left Ventricle Normal left ventricular size and systolic function, EF 61 %. No gross abnormalities noted Right Ventricle The right ventricle is normal in size and function. Right Atrium The right atrium is normal in size. Left Atrium The left atrium is normal in size. Mitral Valve Trace mitral valve regurgitation. Thickened mitral valve. Aortic Valve Thickened aortic valve. Tricuspid Valve Mild tricuspid valve regurgitation. Estimated PA pressure 33 mmHg Pulmonic Valve No gross abnormalities noted Pericardium Normal pericardium without effusion. Aorta Normal ascending aorta dimension. IVC The inferior vena cava appears normal. CONCLUSIONS Normal left ventricular size and systolic function, EF 61 %. No gross abnormalities noted. Normal cardiac chamber sizes. Mild tricuspid valve regurgitation. Estimated PA pressure 33 mmHg. Trace mitral valve regurgitation. Thickened mitral valve. There is no pericardial effusion. There are no intracardiac masses. No similar previous studies are available for comparison Dr Mckay Ragland MD [facility] (Electronically Signed) Final Date: 08 June 2023 23:14 S
--- NOTE | 2023-06-06 14:45 | USCV_ITS ---
Dagmar Goodrich Age: 58 Gender: F : 1965 Exam Date: 06/06/2023 14:01 Ordering Phys: Keren Mclaughlin MD Technologist: CT Exam Location: [facility] – [place] Indication: stenosis Risk Factors: Previous Vascular Surgery: Right Brachial BP: / Left Brachial BP: / Right Left Velocity (cm/s) Spectral Plaque Velocity (cm/s) Spectral Plaque Syst/Diast Broadening Syst/Diast Broadening 58.10/ 15.30 Prox CCA 52.60 / 16.30 58.30/ 22.20 Mid CCA 50.20 / 18.70 45.10/ 17.40 Distal CCA 54.40 / 18.70 42.00/ 14.30 Prox ICA 26.60 / 11.30 45.40/ 21.50 Mid ICA 32.60 / 13.00 68.80/ 25.00 Distal ICA 38.30 / 12.10 52.80 ECA 38.70 1.18 ICA/CCA 0.70 Antegrade Vertebral Antegrade 51.40/ 19.40 cm/s 64.40/ 18.40 cm/s Bi Subclavian Bi 89.60 94.80 FINDINGS no stenosis CONCLUSIONS Right ICA stenosis <50%. Mild atheromatous plaque right carotid bulb/ICA. Left ICA stenosis <50%. Mild atheromatous plaque left carotid bulb/ICA. Intimal thickening in the common carotid arteries and internal carotid arteries bilaterally. Normal antegrade Doppler flow noted in the right vertebral artery. Normal antegrade Doppler flow noted in the left vertebral artery. Lyle Ramirez MD (Electronically Signed) Final Date: 06 June 2023 17:38 S
== END 2023-06-06 13:39 | disposition home or self-care (01) ==
PROVIDERS: PCP Family Medicine; Visit Provider Specialist
DX: G40.909 Epilepsy, unspecified, not intractable, without status epilepticus (principal)
CPT/HCPCS: 93306; 93880

== ENCOUNTER 2023-06-08 12:50 | Outpatient (CLI) | payer BC, MEDICAID, SELFPAY ==
--- NOTE | 2023-06-08 13:00 | MR_ITS ---
WS: [id number] MRA HEAD TECHNIQUE: Axial 3-D TOF images obtained with axial images and axial, sagittal, and coronal 2-D refor matted images. CLINICAL INFORMATION: G40.909 - Epilepsy, unspecified, not intractable, without... COMPARISON: None. FINDINGS: Distal vertebral arteries are patent. Basilar artery is patent. Normal vascularity to the GU[place] territo ry bilaterally. Both ICAs are patent at the skull base. Normal vascularity to the LEOBARDO and MCA territories bilaterally . No evidence of flow-limiting stenosis or aneurysm. MR/MR angio head con [id number] IMPRESSION: Unremarkable intracranial MRA.
--- NOTE | 2023-06-08 13:15 | MR_ITS ---
WS: [id number] MRI HEAD WITH CONTRAST TECHNIQUE: Sagittal T1, T2 axial, T2 axial FLAIR, axial susceptibility weighted imaging, axial diffus ion weighted images, and coronal T2 images were obtained. Pre and post-T1 axial and post T1 coronal i mages. ADC and FSPGR images. CLINICAL INFORMATION: G40.909 - Epilepsy, unspecified, not intractable, without... COMPARISON: CT 2020 FINDINGS: No evidence of restricted diffusion to suggest acute ischemia. Ventricular system and basal cisterns are patent. Moderate supratentorial white matter changes can be seen with hypertension, diabetes, and small vessel disease in a patient this age. Mild parenchymal volume loss. Normal posterior fossa. No rmal vascular flow voids at the skull base. No extra-axial fluid collections. No evidence of mass or mass effect. Mild mucosal thickening in the ethmoid air cells. Small amount fluid in the LEFT maxillary sinus. Nor mal posterior nasopharynx. Normal parapharyngeal fat. Partially empty sella. No hemosiderin on the susceptibly weighted images. Normal optic chiasm and pituitary infundibulum. Te mporal lobes and hippocampal formations are normal in appearance. No abnormal gadolinium enhancement. Normal visualized dural venous sinuses. MR/MR head wo/w con [id number] IMPRESSION: 1. No evidence restricted diffusion to suggest acute ischemia. 2. Moderate supratentorial white matter changes can be seen with hypertension, diabetes, and small vessel disease in a patient this age. Mild parenchymal vol ume loss. 3. No hemosiderin on susceptibly weighted images. 4. No abnormal gadolinium enhancement. 5. Mild LEFT maxillary sinusitis. 6. No other acute findings.
[2023-06-08] MEDS: gadobenate dimeglumine 20 mL vial IV (14:36)
== END 2023-06-08 12:51 | disposition home or self-care (01) ==
LOC: RAD 12:53
PROVIDERS: PCP Family Medicine; Visit Provider Specialist
DX: G40.909 Epilepsy, unspecified, not intractable, without status epilepticus (principal); J32.0 Chronic maxillary sinusitis
CPT/HCPCS: 70544; 70553; A9577

== ENCOUNTER 2023-06-13 11:59 | Outpatient (CLI) | payer BC, MEDICAID, SELFPAY ==
--- NOTE | 2023-06-13 12:07 | MM_ITS ---
WS: [id number] BILATERAL 3D TOMOSYNTHESIS DIGITAL SCREENING MAMMOGRAPHY WITH CAD CLINICAL INFORMATION: Z12.39 - Encounter for other screening for malignant neop... HISTORY: Screening mammogram. Chronic lump RIGHT breast. COMPARISON: None. TECHNIQUE: Bilateral CC and MLO views. FINDINGS: Scattered fibroglandular densities bilaterally. No suspicious focal mass, asymmetry, calcifications, or architectural distortion. No evidence of malignancy. MM/[place] [id number] IMPRESSION: BI-RADS: 1-Negative FOLLOW UP: 1 Year Follow-up Recommend return to annual screening mammography.
== END 2023-06-13 12:00 | disposition home or self-care (01) ==
LOC: RAD 12:04 → MOBLMAM 12:07
PROVIDERS: PCP Family Medicine; Visit Provider Family Medicine
DX: Z12.31 Encounter for screening mammogram for malignant neoplasm of breast (principal)
CPT/HCPCS: 77063; 77067

== ENCOUNTER → 2024-02-14 09:12 | Outpatient (BNVA) | payer SELFPAY | PROVIDERS: PCP Family Medicine; Visit Provider Nurse Practitioner | DX: M75.42 Impingement syndrome of left shoulder; M19.012 Primary osteoarthritis, left shoulder; M75.112 Incomplete rotator cuff tear or rupture of left shoulder, not specified as traumatic; M62.838 Other muscle spasm; M25.512 Pain in left shoulder | CPT/HCPCS: 36415; 73030; 80053; 81001; 85025 ==

== ENCOUNTER 2024-04-25 08:24 | Day surgery (SDC) | payer BC, MEDICAID, SELFPAY ==
[2024-04-25] VITALS (10 sets, daily range): BP systolic 119–153; BP diastolic 75–96; PULSE 50–65; RESP 13–26; TEMP 36.2–36.4; O2SAT 91–100; BMI 38.4
[2024-04-25] MEDS: acetaminophen 1,000 MG/100 ML PIGGYBACK 400 MG IV (09:00)
[2024-04-25] MEDS: CELEcoxib 200 mg Capsule 400 MG PO (09:00)
[2024-04-25] MEDS: sodium chloride 0.9% 1,000 ML 30 ML IV (09:00)
[2024-04-25] MEDS: gabapentin 300 mg Capsule PO (09:01)
--- NOTE | 2024-04-25 09:03 | ANES.PREANE2 ---
Pre-Anesthetic Assessment Height/Weight: Height 1.57 m Weight 95.254 kg Temp Pulse Resp BP Pulse Ox O2 Del Method 97.2 F L 65 18 138/96 98 Room Air 04/25/24 08:41 04/25/24 08:41 04/25/24 08:41 04/25/24 08:41 04/25/24 08:41 04/25/24 08:41 Operation Date: 04/25/24 08:20 Proposed Procedures p Rotator Cuff Repair - Open(Left) - Angy Priest MD s Distal Clavicle Resection(Left) - Angy Priest MD s Debridement Upper Extremity(Left) - Angy Priest MD Familial anesthetic complications: None Was Beta Harvey taken within 24 hours: N/A Was Clonidine taken within 24 hours: N/A Last intake: Intake Last Liquid Date 04/24/24 Last Liquid Time 23:00 Last Solid Date 04/24/24 Last Solid Time 22:00 Social No alcohol and No tobacco Exam alert, oriented x 3, clear to auscultation bilaterally and regular rate & rhythm CV/HEM Hypertension GI Gastroesophageal Reflux Disease Neuropsych Seizure Anesthetic Plan ASA status: 3 Anesthesia: General Risk of > 500 ml blood loss (7ml/kg in children): No Medications/Allergies Home Medications Medication Instructions Recorded Confirmed Last Taken Type fluorometholone 0.1 % eye 2 drp ophthalmic (eye) .once daily 07/13/21 04/25/24 04/18/24 Rx drops,suspension 30 days #10 mL acetaminophen 650 mg 650 mg PO Q12H PRN pain #10 tabs 03/16/23 02/14/24 Unknown Rx tablet,extended release (Tylenol 8 Hour) [id number] 1 tab PO BID PRN pain 30 days #60 04/18/23 04/25/24 04/18/24 Rx 50 mg-325 mg-40 mg tablet tabs meloxicam 15 mg tablet 15 mg PO DAILY #90 tabs 06/22/23 04/25/24 04/18/24 Rx cholecalciferol (vitamin D3) 625 50,000 unit PO .weekly #14 caps 10/03/23 04/25/24 Unknown Rx mcg (25,000 unit) capsule chlorzoxazone 500 mg tablet 250 mg (1/2 x 500 mg) PO TID PRN 0404/25/24 04/18/24 Rx muscle spasm #21 tabs gabapentin 600 mg tablet 600 mg PO BID 90 days #180 tabs 03/15/24 04/25/24 04/18/24 Rx atenolol 25 mg tablet 25 mg PO DAILY 04/24/24 04/25/24 04/18/24 History citalopram 20 mg tablet 20 mg PO DAILY 04/24/24 04/25/24 04/18/24 History furosemide 20 mg tablet 20 mg PO DAILY 04/24/24 04/25/24 04/18/24 History omeprazole 40 mg capsule,delayed 40 mg PO DAILY 04/24/24 04/25/24 04/18/24 History release topiramate 50 mg tablet 50 mg PO BID 04/24/24 04/25/24 04/18/24 History Allergies Allergy/AdvReac Type Severity Reaction Status Date / Time No Known Allergies Allergy Verified 02/14/24 09:14 [facility] Anesthesia Medical History (Updated 02/19/24 @ 18:50 by PARMINDER Marks) Osteoarthritis of left AC (acromioclavicular) joint Impingement syndrome, shoulder, left Epilepsy Neuropathy Gout Episcleritis of both eyes Hx of seizure disorder Surgical History History of ankle surgery Right ankle Hx of colonoscopy History of 3 sections Family History Mother Chronic kidney disease (CKD), Onset Age: 77 Father Cancer throat cancer Brother Cancer liver cancer Brother Cancer colan cancer Other Diabetes Heart disease Hyperlipidemia Hypertension Stroke Denies family history of Clotting disorder Anesthesia complication Bleeding disorder Social History Smoking and tobacco/nicotine status: never used tobacco/nicotine Alcohol intake: never Substance/Drug Use: never Data Anesthesia Cardiac Studies: Echocardiogram 06/06/23
--- NOTE | 2024-04-25 09:25 | ANES.PROC ---
Anesthesia Procedures Procedure/Date: 04/25/24 Nerve Block ^: Nerve Block 1: Main Anesthesia: general anesthesia Time Out Performed: Yes Consent: requested by attending/covering physician, from patient, from other, risks and benefits reviewed and patient agrees to proceed Nerve block location: interscalene (L) Anesthesia monitors applied: pulse oximetry, EKG and BP cuff Nerve block position: semi sitting Anesthetic Used: ropivicaine 0.5% (20 ml) and with decadron (4 mg) Ultrasound used to: recognize landmarks, visualize and ID brachial plexus, in supraclavicular region and visualize and ID interscalene groove Nerve Stimulator Used?: No Interscalene/Femoral BLK: 2 stimuplex 22 g needle used for position and inplane approach, visualize local anesthetic spread and no vascular puncture identified Injection: neg aspiration of heme Patient Tolerated Procedure: well Complications: none
[2024-04-25] MEDS: atenolol 50 mg Tablet 25 MG PO (09:53)
[2024-04-25] MEDS: topiramate 25 mg Tablet 50 MG PO (09:54)
--- NOTE | 2024-04-25 10:09 | PM.OP ---
Operative Report Date of procedure: April 25, 2024 Surgeon: Angy Priest MD Related Problem List Diagnoses (1) Impingement syndrome, shoulder, left: (2) Osteoarthritis of left AC (acromioclavicular) joint:
--- NOTE | 2024-04-25 10:09 | W.PM.OPSUD ---
Surgery/Procedure H&P Update DATE OF PROCEDURE: April 25, 2024 DATE H&P PERFORMED: 02/14/24 PLANNED PROCEDURE: Operation Date: 04/25/24 08:20 Proposed Procedures p Rotator Cuff Repair - Open(Left) - Angy Priest MD s Distal Clavicle Resection(Left) - Angy Priest MD s Debridement Upper Extremity(Left) - Angy Priest MD Related Problem List Diagnoses (1) Impingement syndrome, shoulder, left: (2) Osteoarthritis of left AC (acromioclavicular) joint:
--- NOTE | 2024-04-25 10:12 | W.PM.OPSFHP ---
Same Day Surgery H&P Indication for Procedure/HPI DATE OF PROCEDURE: April 25, 2024 CHIEF COMPLAINT/INDICATIONFOR SURGICAL PROCEDURE: Left shoulder pain PREOP DIAGNOSIS: Left shoulder impingement and acromioclavicular joint osteoarthritis PLANNED PROCEDURE: Operation Date: 04/25/24 08:20 Proposed Procedures p Rotator Cuff Repair - Open(Left) - Angy Priest MD s Distal Clavicle Resection(Left) - Angy Priest MD s Debridement Upper Extremity(Left) - Angy Priest MD This is a 58 year old female in clinic today for left shoulder distal clavicle resection and acromioplasty. 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 Patient was previously seen and treated by Dr. Alcides De La Fuente MD and DEJA Escobar. Son states she has had subacromial cortisone injections, oral NSAIDs and home therapy with no relief of symptoms. States pain is 10/10. She was seen in the clinic by María Rojo and discussion was undertaken regarding potential for rotator cuff repair, distal clavicle resection and acromioplasty. Consents were signed and questions were answered. Medications/Allergies* Home Medications Medication Instructions Recorded Confirmed Type atenolol 25 mg tablet 25 mg PO DAILY 04/24/24 04/25/24 History citalopram 20 mg tablet 20 mg PO DAILY 04/24/24 04/25/24 History furosemide 20 mg tablet 20 mg PO DAILY 04/24/24 04/25/24 History omeprazole 40 mg capsule,delayed 40 mg PO DAILY 04/24/24 04/25/24 History release topiramate 50 mg tablet 50 mg PO BID 04/24/24 04/25/24 History Allergies/Adverse Reactions Allergy/AdvReac Type Severity Reaction Status Date / Time No Known Allergies Allergy Verified 02/14/24 09:14 Current Medications: Generic Name Dose Route Start Last Admin Trade Name Freq PRN Reason Stop Dose Admin Atenolol 25 mg 04/25/24 09:30 04/25/24 09:53 Atenolol 50 Mg Tablet PO 25 mg DAILY RACHEL Administration Sodium Chloride 1,000 mls @ 30 mls/hr 04/25/24 08:30 04/25/24 09:00 Sodium Chloride 0.9% IV 04/26/24 08:29 30 mls/hr .Q24H RACHEL Administration Pertinent History/Comorbid Conditions* Medical History (Updated 02/19/24 @ 18:50 by [facility] Osteoarthritis of left AC (acromioclavicular) joint Impingement syndrome, shoulder, left Epilepsy Neuropathy Gout Episcleritis of both eyes Hx of seizure disorder Surgical History (Updated 03/21/23 @ 12:43 by Aashish Chew MD) History of ankle surgery Right ankle Hx of colonoscopy History of 3 sections Family History (Updated 03/21/23 @ 10:37 by Jo-Ann Calvin LPN) Brother Brother Father Mother Diabetes Heart disease Hyperlipidemia Chronic kidney disease (CKD) Mother, Onset Age: 77 Cancer Father throat cancer Brother liver cancer Brother colan cancer Hypertension Stroke Denies family history of Clotting disorder Anesthesia complication Bleeding disorder Social History Smoking and tobacco/nicotine status: never used tobacco/nicotine Alcohol intake: never Substance/Drug Use: never Pertinent Exam Findings alert, oriented x 3, clear to auscultation bilaterally, regular rate & rhythm and operative site marked Pertinent Data MRI March 2023 IMPRESSION: 1. Moderate AC joint arthritis with osteophyte encroachment upon the supraspinatus tendon. 2. Moderate subacromial impingement contacting the distal supraspinatus muscle. There is an associated bursal surface tear of the supraspinatus. Partial tear with no retraction. 3. Biceps tendon is not visualized within the bicipital groove. Bicipital groove is being distorted by a subchondral cyst. Related Problem List Diagnoses (1) Impingement syndrome, shoulder, left: (2) Osteoarthritis of left AC (acromioclavicular) joint: Recommendations Surgery/Procedure today Coding Level of Care Code Acute Code for [facility] Fwd Diagnoses Impingement syndrome, shoulder, left M75.42 Osteoarthritis of left AC (acromioclavicular) joint M19.012
[2024-04-25] MEDS: ceFAZolin 2,000 MG in sodium chloride 0.9% (plus) 50 ML 100 MG IV (10:13)
[2024-04-25] MEDS: ceFAZolin 1,000 mg SDV 1000 MG IRRIGATION (10:45)
--- NOTE | 2024-04-25 11:48 | P.OP_ITS ---
Operative Report Date of procedure: April 25, 2024 Pre-op diagnosis: Left shoulder impingement and acromioclavicular joint degenerative osteoarthritis with possible rotator cuff tear Post-op diagnosis: Left shoulder impingement and an acromioclavicular joint osteoarthritis with rotator cuff tear Post-op findings: Large rotator cuff tear horizontal and vertical. Large osteophytes. Severe impingement. Procedure done: Left shoulder rotator cuff repair with acromioplasty and distal clavicle resection utilizing anchor x 2 Implants: The Franci alphavent suture anchor 5.5 mm bio composite with 2 strands of number 2 Xbraid S suture Specimens removed/disposition: Bone, disposed of Pathology: none sent Surgeon: Angy Priest MD Habilitation [facility] Anesthesia: General (Intubated, ASA 3) Estimated blood loss (mL): 20 IV fluids (mL): 900 Urine output (mL): 0 (No Pedro) Complications: None Findings: Severe impingement with large rotator cuff tear requiring primary and anchor repair Condition: stable Disposition: PACU (Then to same-day surgery for subsequent discharge to home) Brief History: This is a 58 year old female in clinic today for left shoulder distal clavicle resection and acromioplasty. She presents with her son who is her business professor. Patient was previously seen and treated by Dr. Alcides De La Fuente MD and DEJA Escobar. Son states she has had subacromial cortisone injections, oral NSAIDs and home therapy with no relief of symptoms. States pain is 10/10. She was seen in the clinic by María Rojo and discussion was undertaken regarding potential for rotator cuff repair, distal clavicle resection and acromioplasty. Consents were signed and questions were answered. Further discussion was accomplished in the preoperative area, and questions were further answered. Procedure: The patient was brought to the operating theater and underwent general intubated anesthesia, ASA 3. The patient was placed in a beachchair position and subsequently the left upper extremity was prepped and draped in the usual fashion utilizing DuraPrep. The arm was draped free. A surgical pause was performed prior to commencement of the surgical procedure. At the time of the surgical pause, we confirmed the site and side of surgery as well as administration of appropriate preoperative antibiotics Ancef 2 g. MRI was also reviewed at that time. Following the surgical pause, an incision was made at approximately the level of the acromioclavicular joint extending across the anterolateral corner of the acromion and distally as necessary. Care was taken to avoid injury to the axillary nerve by limiting the distal extent of the incision. Dissection continued through skin and soft tissues using a scalpel. Hemostasis was obtained using electrocautery. Soft tissues were elevated off the acromion. An acromioplasty was then accomplished using a combination of a saw and a power rasp. With this, we were able to remove the significant compression caused by the acromion. The rotator cuff was then evaluated to look for tears. There was a large tear that was both horizontal and vertical in nature with osteophyte for mation underneath. The rotator cuff tear was evaluated. The edges were freshened using a scalpel. The reattachment point bony on the humeral head was addressed with a rongeur to prepare a bed for appropriate repair. Osteophytes were removed. Repair was accomplished using a primary repair with 0 Ethibond followed by repair with suture anchors x 2. The anchor was utilized for [employer]. The tear orientation was noted to be both horizontal and vertical. After the rotator cuff had been thus addressed, the shoulder was placed through further range of motion to assure there was no further evidence of rotator cuff tear. The acromioclavicular joint was exposed. A saw was then used to resect the distal clavicle without difficulty. The undersurface of the clavicle was palpated and was slightly further debrided. A power rasp was used to further smooth the area. When this was felt to be adequately resected, the wound was irrigated. Attention was then directed to closure. The wound was irrigated and closure was accomplished with 0 Vicryl in the capsular tissues overlying the acromioclavicular joint area as well as over the acromion and down into the deltoid muscle. 3-0 Monocryl was used to close the subcutaneous tissues followed by 4-0 Monocryl subcuticular closure. This was followed by Dermabond, Steri-Strips, and OpSite. The patient was placed in a slingshot style sling and was returned to the recovery room in satisfactory condition. The patient will be discharged to home to follow-up with me in the office. There were no complications and no specimens. Related Problem List Diagnoses (1) Osteoarthritis of left AC (acromioclavicular) joint: (2) Impingement syndrome, shoulder, left: (3) Left rotator cuff tear:
--- NOTE | 2024-04-25 13:25 | ANE.PACU2 ---
Inpatient post-anesthesia follow up: Airway intact: Yes Vital signs: Temperature 97.5 F Pulse Rate 56 Respiratory Rate 17 Blood Pressure 153/78 Pulse Oximetry 94 Oxygen Delivery Me thod Room Air Oxygen Flow Rate 6 Fraction of Inspir ed Oxygen Hydration adequate: Yes Nausea and vomiting: No Pain level: 1 Mental status: Baseline
== END 2024-04-25 13:22 | disposition home or self-care (01) ==
PROVIDERS: PCP Family Medicine; Visit Provider Specialist
PROC: (CPT 23120; principal; 2024-04-25 08:20)
PROC: (CPT 23120; 2024-04-25 08:20)
PROC: (CPT 23120; 2024-04-25 08:20)
DX: M25.812 Other specified joint disorders, left shoulder (principal); M19.012 Primary osteoarthritis, left shoulder; M75.102 Unspecified rotator cuff tear or rupture of left shoulder, not specified as traumatic; I10 Essential (primary) hypertension; K21.9 Gastro-esophageal reflux disease without esophagitis
CPT/HCPCS: 23120; 23412; J0131; J0690; J1100; J2250; J2405; J2704; J2710; J2795; J3010; J3490; J7030

== ENCOUNTER → 2024-06-03 09:52 | Outpatient (BNVA) | payer BC, MEDICAID, SELFPAY | PROVIDERS: PCP Family Medicine; Visit Provider Nurse Practitioner | DX: M25.512 Pain in left shoulder (principal); G89.29 Other chronic pain; Z98.890 Other specified postprocedural states; M75.112 Incomplete rotator cuff tear or rupture of left shoulder, not specified as traumatic; M75.42 Impingement syndrome of left shoulder; M19.012 Primary osteoarthritis, left shoulder | CPT/HCPCS: 73030 ==

== ENCOUNTER → 2024-06-06 09:57 | Outpatient (BNVA) | payer BC, MEDICAID, SELFPAY | PROVIDERS: PCP Family Medicine; Visit Provider Nurse Practitioner Family | DX: M77.32 Calcaneal spur, left foot (principal); M19.072 Primary osteoarthritis, left ankle and foot; M65.872 Other synovitis and tenosynovitis, left ankle and foot | CPT/HCPCS: 73610 ==

== ENCOUNTER 2024-11-12 09:31 | Outpatient (CLI) | payer BC, MEDICAID, SELFPAY ==
--- NOTE | 2024-11-12 09:33 | MM_ITS ---
WS: [id number] Bilateral screening 3D tomosynthesis digital mammogram, 11/12/2024 9:33 AM Clinical Data: Z12.39 - Encounter for other screening for malignant neop... Comparison: 06/13/2023 Findings: No spiculated masses or clustered calcifications are seen. There are no secondary signs of carcinoma . MM/MM scr BI tomosynthesis [id number] Impression: Negative bilateral mammogram unchanged. Recommend annual screening mammograms. BIRADS: 1 - Negative. FOLLOW UP: 1 Year Follow-up DENSITY: There are scattered areas of fibroglandular density. The CAD quality checker was used
== END 2024-11-12 09:32 | disposition home or self-care (01) ==
LOC: RAD 09:32
PROVIDERS: PCP Family Medicine; Visit Provider Obstetrics & Gynecology
DX: Z12.31 Encounter for screening mammogram for malignant neoplasm of breast (principal)
CPT/HCPCS: 77063; 77067

== ENCOUNTER 2024-12-05 16:09 | Outpatient (CLI) | payer BC, MEDICAID, SELFPAY ==
--- NOTE | 2024-12-05 16:00 | MR_ITS ---
WS: [id number] MRI LEFT ANKLE WITHOUT CONTRAST. COMPARISON: Radiographs 06/06/2024 Multiplanar, multisequence imaging is performed without contrast. Large insertional enthesopathy of the Achilles tendon. Enthesophyte measures approximately 17 mm in l ength attaching to the posterior calcaneus. There is a very small amount of increased T2 signal in th e adjacent Achilles tendon. Associated partial insertion site tear of the Achilles tendon is suspecte d. There is mild rounding of the anterior Achilles tendon approximately 3.5 cm from the Achilles tend on insertion site consistent with tendinopathy. Mild increased T2 signal in the central tendon at the site of rounding. There is also mild Helen's deformity of the calcaneus which is often associated with enthesopathy o f the calcaneus. There is mild retrocalcaneal bursitis. Edema within Helen's deformity. Moderate size calcaneal spur 13 mm. Plantar aponeurosis insertion site appears normal otherwise. No fractures or marrow edema. Mild narrowing of the tibiotalar joint. Syndesmosis is normal. Anterior inferior and posterior inferior tibiofibular ligaments are intact. Anterior and posterior ta lofibular ligaments are intact. Normal deltoid ligament. Normal spring and calcaneofibular ligament. Peroneal tendons are normal. Normal size and signal posterior tibialis tendon. Normal flexor hallucis longus and flexor digitorum longus. Normal anterior extensor tendons. Bony spurring at the talonavicular articulation with a small amount of adjacent inflammatory fluid. N ormal sinus Tarsi. MR/MR ankle LT wo con* [id number] IMPRESSION: 1. Large insertional enthesopathy of the Achilles tendon measures 17 mm. 2. Associated Helen's deformity with marrow edema in the bony protrusion. 3. Small retrocalcaneal bursitis. 4. Mild Achilles tendinopathy. 5. Suspect insertional site tear of the distal Achilles tendon with interstiti al extension. Minimal tear. 6. Moderate size calcaneal spur, 13 mm.
== END 2024-12-05 16:10 | disposition home or self-care (01) ==
LOC: RAD 16:13
PROVIDERS: PCP Family Medicine; Visit Provider Podiatrist Foot & Ankle Surgery
DX: M76.62 Achilles tendinitis, left leg (principal); R93.6 Abnormal findings on diagnostic imaging of limbs; M77.32 Calcaneal spur, left foot; M77.8 Other enthesopathies, not elsewhere classified
CPT/HCPCS: 73721

== ENCOUNTER 2025-02-07 05:44 | Day surgery (SDC) | payer BC, MEDICAID, SELFPAY ==
[2025-02-07] VITALS (12 sets, daily range): BP systolic 94–139; BP diastolic 62–84; PULSE 59–74; RESP 14–22; TEMP 36.1–36.4; O2SAT 94–99; BMI 37.8
--- NOTE | 2025-02-07 | XR_ITS ---
WS: [id number] Left foot, C-arm fluoroscopy views, 02/07/2025 Clinical Data: [facility] PICS Comparison: Left ankle, 06/06/2024 Findings: Dr. Carranza performed Achilles tendon repair XR/XR foot LT min 3V* [id number] Impression: Achilles tendon repair.
--- NOTE | 2025-02-07 06:33 | P.HPUD_ITS ---
Surgery/Procedure H&P Update DATE OF PROCEDURE: February 07, 2025 DATE H&P PERFORMED: 01/13/25 H&P UPDATE INFORMATION: I have reviewed H&P completed within last 30 days, I have examined patient prior to procedure, No changes to prior documentation and H&P is in [facility] EMR on date indicated PREOP DIAGNOSIS: Left Helen's deformity with Achilles tendinosis. PLANNED PROCEDURE: Operation Date: 02/07/25 07:00 Proposed Procedures p Achilles Tendon Repair(Left) - Abdon Carranza DPM s Haglunds Resection(Left) - Abdon Carranza DPM s hallucis longus tendon transfer Left Foot(Left) - Abdon Carranza DPM
[2025-02-07] MEDS: sodium chloride 0.9% 1,000 ML 30 ML IV (06:39)
[2025-02-07] MEDS: gabapentin 300 mg Capsule PO (06:39)
[2025-02-07] MEDS: CELEcoxib 200 mg Capsule 400 MG PO (06:39)
[2025-02-07 06:56] LABS: Blood Urea Nitrogen 13 mg/dL (8-23); Calcium 9.1 mg/dL (8.5-10.5); Carbon Dioxide 21 mmol/L (22-29); Chloride 108 mmol/L (98-107); Creatinine Clr Calc Pharmacy 70.9567; Glomerular Filtration Rate 63.9 mL/min (90-130); Glucose 107 mg/dL (65-115); Osmolality Calculated 291 mOsm/kg (285-295); Sodium 140 mmol/L (136-145)
[2025-02-07 06:57] LABS: Anion Gap 15.3 (5-19); Potassium 4.3 mmol/L (3.5-5.1)
--- NOTE | 2025-02-07 06:58 | P.OP_ITS ---
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 CPT code 62502 2) Left Helen's resection. CPT code 02708 Implants: Arthrex speed bridge with ripstop 2-0 Vicryl 4-0 Vicryl 4-0 nylon Surgeon: Abdon Carranza DPM Sliver Machine Operator: Kirit Estimated blood loss: 5 47 IV fluids: See intraoperative documentation Urine output: None Complications: No complications Brief History: Patient having immense pain affecting her overall quality of life left Achilles and plantar fascia/with Helen's bump, Achilles tendinosis and fasciitis. Would like to discuss surgical options. MRI findings as above. I reviewed at length with the patient, the risks, potential complications, benefits, alternatives, expectations, and typical outcomes associated with the surgery. The risks and potential complications were explained in detail, including but not limited to infection, wound dehiscence or soft tissue complications, bleeding and hematoma, chronic edema, neuritis or nerve damage producing numbness or chronic pain, CRPS, failure to relieve pain or worsening pain, thick / painful / unsightly scar, limited motion / stiffness, malposition, delayed union, malunion, or nonunion, fracture, reaction to implants, anesthetic complications, venous thromboembolism, and deformity recurrence. I discussed the notion of no regrets with the patient as it pertains to complications and outcomes. The patient seemed to understand the nature of the proposed care and required convalescence. They asked appropriate questions, answered to their satisfaction. They are aware no guarantees can be made as to a satisfactory outcome and they understand there may be other possible unforeseen complications or outcomes not listed here that will be treated accordingly if they arise. There were no written or implied guarantees given to the patient. They gave informed consent to proceed. Procedure: Under mild sedation the patient was brought to the operating room, general anesthesia was administered by the anesthesia service. Of note left popliteal block was performed preoperatively per anesthesia. Well-padded pneumatic tourniquet applied to the left high thigh. Patient was then positioned prone with appropriate padding and offloading onto the operating table. Left lower extremity was scrubbed, prepped and draped utilizing normal aseptic technique. Left lower extremity was then exanguinated with an Esmarch bandage and tourniquet inflated to 350 mmHg. Attention was directed to the left posterior Achilles where osseous prominence was palpated a fishhook incision full-thickness down to peritenon to maintain thicker flap with a #15 blade all bleeders were ligated and cauterized as necessary. Achilles tendon was incised and reflected off of its insertion and noted to have tearing longitudinally degenerative changes with consistent of tendinosis this was sharply excisionally debrided with 15 blade and a pickup waste was passed to the operative field, enthesophyte and Helen's deformity was resected with a sagittal saw and osteotome all rough edges were smoothed. After having repaired the Achilles tendon with debridement and 2-0 Vicryl it was reattached and anchored down with a Arthrex Achilles speed bridge knotless sys tem with 4 anchors. The Achilles resting tension was appropriate she had dorsiflexion beyond neutral. Excellent robust repair of the Achilles tendon appreciated intraoperatively incision was irrigated with saline solution, peritenon reapproximated with 2-0 Vicryl, subcu with 3-0 Vicryl and skin with 4- 0 nylon. The incision was dressed with Xeroform sterile 4 x 4, Kerlix and a well-padded short leg cast was applied with the ankle in plantarflexion. The tourniquet was deflated and a prompt hyperemic response is noted to the distal digits of the left foot. Patient tolerated the procedure and anesthesia well and was transferred to the PACU with vital signs stable and vascular status intact. Following a period of postoperative monitoring patient will be discharged home without home care instructions and scheduled follow-up. Advised 81 mg aspirin to be taken once daily starting tomorrow morning after surgery to help potentially reduce the risks of deep vein thrombosis. She is to be strict nonweightbearing elevate left foot while resting. She is not a candidate for crutches due to upper body strength and balance and would be at risk for falls she will require a wheelchair to remain nonweightbearing this was sent to the home store.
--- NOTE | 2025-02-07 07:37 | ANES.PREANE2 ---
Pre-Anesthetic Assessment Height/Weight: Height 1.57 m Weight 93.894 kg Temp Pulse Resp BP Pulse Ox O2 Del Method 97.1 F L 61 22 H 104/72 98 Room Air 02/07/25 06:26 02/07/25 07:37 02/07/25 07:37 02/07/25 07:37 02/07/25 07:37 02/07/25 07:37 Preop Diagnosis: Left Helen's deformity with Achilles tendinosis. Operation Date: 02/07/25 07:00 Proposed Procedures p Achilles Tendon Repair(Left) - Abdon Carranza DPM s Haglunds Resection(Left) - Abdon Carranza DPM s hallucis longus tendon transfer Left Foot(Left) - Abdon Carranza DPM Familial anesthetic complications: None Was Beta Harvey taken within 24 hours: Yes Was Clonidine taken within 24 hours: N/A Last intake: Intake Last Liquid Date 02/06/25 Last Liquid Time 22:00 Last Solid Date 02/06/25 Last Solid Time 16:30 Social No alcohol and No tobacco Exam alert, oriented x 3, clear to auscultation bilaterally and regular rate & rhythm Airway Mallampati: Class II Dentition: full CV/HEM Hypertension GI Gastroesophageal Reflux Disease Neuropsych Seizure Anesthetic Plan ASA status: 3 Anesthesia: General and Regional (specify below) Risk of > 500 ml blood loss (7ml/kg in children): No Medications/Allergies Home Medications ?Medication ?Instructions ?Recorded ?Confirmed ?Last Taken ?Type acetaminophen 650 mg 650 mg PO Q12H PRN pain #10 tabs 03/16/23 02/07/25 02/06/25 Rx tablet,extended release (Tylenol 8 Hour) [id number]-fryycrde 1 tab PO BID PRN pain 30 days #60 04/18/23 02/07/25 02/06/25 Rx 50 mg-325 mg-40 mg tablet tabs chlorzoxazone 500 mg tablet 250 mg (1/2 x 500 mg) PO TID PRN 03/15/24 02/07/25 02/06/25 Rx muscle spasm #21 tabs gabapentin 600 mg tablet 600 mg PO BID 90 days #180 tabs 03/15/24 02/07/25 02/06/25 Rx atenolol 25 mg tablet 25 mg PO DAILY #90 tabs 10/10/24 02/07/25 02/06/25 Rx citalopram 20 mg tablet 20 mg PO DAILY #90 tabs 10/10/24 02/07/25 02/06/25 Rx pantoprazole 40 mg tablet,delayed 40 mg PO DAILY #90 tabs 10/10/24 02/07/25 02/06/25 Rx release (Protonix) topiramate 50 mg tablet 50 mg PO BID #180 tabs 10/10/24 02/07/25 02/06/25 Rx furosemide 20 mg tablet 20 mg PO DAILY 02/07/25 02/07/25 02/06/25 History hydrocodone 10 mg-acetaminophen 1 tab PO Q6H PRN pain 7 days #28 02/07/25 Unknown Rx 325 mg tablet tabs meloxicam 15 mg tablet 15 mg PO DAILY 02/07/25 02/07/25 02/06/25 History Allergies Allergy/AdvReac Type Severity Reaction Status Date / Time No Known Allergies Allergy Verified 02/07/25 06:03 Current Medications Generic Name Dose Route Start Last Admin Trade Name Freq PRN Reason Stop Dose Admin Sodium Chloride 1,000 mls @ 30 mls/hr 02/07/25 06:00 02/07/25 06:39 Sodium Chloride 0.9% IV 02/08/25 05:59 30 mls/hr .Q24H RACHEL Administration PFSH Anesthesia Medical History Calcaneal spur of left foot Osteoarthritis of left AC (acromioclavicular) joint Impingement syndrome, shoulder, left Epilepsy Neuropathy Gout Episcleritis of both eyes Hx of seizure disorder Surgical History History of ankle surgery Right ankle Hx of colonoscopy History of 3 sections Family History Mother Chronic kidney disease (CKD), Onset Age: 77 Father Cancer throat cancer Brother Cancer liver cancer Brother Cancer colan cancer Other Diabetes Heart disease Hyperlipidemia Hypertension Stroke Denies family history of Clotting disorder Anesthesia complication Bleeding disorder Social History Smoking and tobacco/nicotine status: never used tobacco/nicotine Alcohol intake: never Substance/Drug Use: never Data Anesthesia 02/07/25 06:32 BMP 02/07/25 06:32 Sodium 140 Potassium 4.3 Chloride 108 H Carbon Dioxide 21 L BUN 13 Creatinine 0.9 Glucose 107 Calcium 9.1 Cardiac Studies: Echocardiogram 06/06/23
--- NOTE | 2025-02-07 07:38 | ANES.PROC ---
Anesthesia Procedures Procedure/Date: 02/07/25 Nerve Block ^: Nerve Block 1: Main Anesthesia: general anesthesia Time Out Performed: Yes Consent: requested by attending/covering physician, from patient, from other, risks and benefits reviewed and patient agrees to proceed Nerve block location: popliteal (L) Anesthesia monitors applied: pulse oximetry, EKG, BP cuff and oxygen Nerve block position: supine Anesthetic Used: ropivicaine 0.5% (30 ml) and with decadron (4 mg) Ultrasound used to: recognize landmarks Nerve Stimulator Used?: No Interscalene/Femoral BLK: 4 stimuplex 21 g needle used for position and inplane approach, visualize local anesthetic spread and no vascular puncture identified Injection: neg aspiration of heme Patient Tolerated Procedure: well Complications: none
[2025-02-07] MEDS: ceFAZolin 2,000 mg SDV 2000 MG IVP (08:31)
--- NOTE | 2025-02-07 09:46 | W.PM.BPON ---
Date of Procedure: 02/09/24 Surgeon: Abdon Carranza DPM Integrated Pest Management Technician(s): Melanie Rneee Procedure(s) performed: Helen's resection and Achilles repair, left lower extremity. Findings of the procedure(s): Helen's deformity with Achilles tendinosis Estimated blood loss: 5 Specimen(s) removed: No specimens removed Post-operative diagnosis: Left Helen's deformity and Achilles tendinosis
--- NOTE | 2025-02-07 11:15 | ANE.PACU2 ---
Inpatient post-anesthesia follow up: Airway intact: Yes Vital signs: Temperature 97.6 F Pulse Rate 59 Respiratory Rate 18 Blood Pressure 120/68 Pulse Oximetry 99 Oxygen Delivery Me thod Room Air Oxygen Flow Rate 6 Fraction of Inspir ed Oxygen Hydration adequate: Yes Nausea and vomiting: No Pain level: 1 Mental status: Baseline
== END 2025-02-07 11:15 | disposition home or self-care (01) ==
PROVIDERS: Anesthesiology; PCP Family Medicine; Visit Provider Podiatrist Foot & Ankle Surgery
PROC: (CPT 27650; principal; 2025-02-07 07:00)
PROC: (CPT 27654; 2025-02-07 07:00)
PROC: (CPT 27654; 2025-02-07 07:00)
DX: M92.62 Juvenile osteochondrosis of tarsus, left ankle (principal); M77.52 Other enthesopathy of left foot and ankle; S86.012A Strain of left Achilles tendon, initial encounter; G40.909 Epilepsy, unspecified, not intractable, without status epilepticus; M67.88 Other specified disorders of synovium and tendon, other site; X58.XXXA Exposure to other specified factors, initial encounter; Z79.899 Other long term (current) drug therapy; M10.9 Gout, unspecified; G62.9 Polyneuropathy, unspecified
CPT/HCPCS: 27654; 28118; 36415; 73630; 76000; 80048; C1713; J0690; J1100; J1171; J2405; J2704; J2795; J3010; J3490; J7030

== ENCOUNTER → 2025-03-21 11:54 | Outpatient (BNVA) | payer BC, MEDICAID, SELFPAY | PROVIDERS: PCP Family Medicine; Visit Provider Family Medicine | DX: I10 Essential (primary) hypertension (principal) | CPT/HCPCS: 80053; 80061; 84439; 84443; 85025 ==

== ENCOUNTER 2025-08-26 08:06 | Day surgery (SDC) | payer BC, MEDICAID, SELFPAY ==
[2025-08-26 08:25] VITALS: BMI 48.2
[2025-08-26 08:38] VITALS: BP 151/75; PULSE 59; RESP 18; TEMP 36.4; O2SAT 96
--- NOTE | 2025-08-26 08:50 | ANES.PREANE2 ---
Pre-Anesthetic Assessment Height/Weight: Height 1.6 m Weight 123.377 kg Temp Pulse Resp BP Pulse Ox O2 Del Method 97.5 F L 59 L 18 151/75 96 Room Air 08/26/25 08:38 08/26/25 08:38 08/26/25 08:38 08/26/25 08:38 08/26/25 08:38 08/26/25 08:38 Preop Diagnosis: GERD Operation Date: 08/26/25 09:15 Proposed Procedures p EGD EGD with Biopsy 28875 R12(Not Applicable) - Lee De León MD Familial anesthetic complications: none Was Beta Harvey taken within 24 hours: Yes Was Clonidine taken within 24 hours: N/A Last intake: Intake Last Liquid Date 08/25/25 Last Liquid Time 23:00 Last Solid Date 08/25/25 Last Solid Time 17:00 Social No alcohol and No tobacco Exam alert and oriented x 3 Airway Submandibular: within normal limits Cervical ROM: within normal limits Mallampati: Class II Dentition: full History/ROS No significant history except as noted Pulmonary None reported CV/HEM Arrythmia and Hypertension None reported Hepatic None reported GI Gastroesophageal Reflux Disease Metabolic Morbid Obesity [facility] None reported Neuropsych Seizure (did not take topamax this AM. ) Anesthetic Plan ASA status: 3 Anesthesia: Anesthesia Evaluation and MAC Risk of > 500 ml blood loss (7ml/kg in children): No Medications/Allergies Home Medications ?Medication ?Instructions ?Recorded ?Confirmed ?Last Taken ?Type topiramate 50 mg tablet 50 mg PO BID #180 tabs 03/21/25 08/26/25 08/25/25 Rx acetaminophen 650 mg 650 mg PO Q8H PRN pain #90 tabs 08/01/25 08/26/25 08/25/25 Rx tablet,extended release (Tylenol Arthritis Pain) atenolol 25 mg tablet 25 mg PO DAILY #90 tabs 08/01/25 08/26/25 08/25/25 Rx citalopram 20 mg tablet 20 mg PO DAILY #90 tabs 08/01/25 08/26/25 08/25/25 Rx furosemide 20 mg tablet 20 mg PO DAILY #90 tabs 08/01/25 08/26/25 08/25/25 Rx prednisone 20 mg tablet 40 mg (2 x 20 mg) PO DAILY 5 days 09/04/2008/26/25 08/25/25 Rx #10 tabs gabapentin 600 mg tablet 600 mg PO BID 08/26/25 08/26/25 08/25/25 History pantoprazole 40 mg tablet,delayed 40 mg PO DAILY 08/26/25 08/26/25 08/25/25 History release (Protonix) Allergies Allergy/AdvReac Type Severity Reaction Status Date / Time No Known Allergies Allergy Verified 08/22/25 08:37 [facility] Anesthesia Medical History Calcaneal spur of left foot Osteoarthritis of left AC (acromioclavicular) joint Impingement syndrome, shoulder, left Epilepsy Neuropathy Gout Episcleritis of both eyes Hx of seizure disorder Surgical History History of ankle surgery Right ankle Hx of colonoscopy History of 3 sections Family History Mother Chronic kidney disease (CKD), Onset Age: 77 Father Cancer throat cancer Brother Cancer liver cancer Brother Cancer colan cancer Other Diabetes Heart disease Hyperlipidemia Hypertension Stroke Denies family history of Clotting disorder Anesthesia complication Bleeding disorder Social History Smoking and tobacco/nicotine status: never used tobacco/nicotine Alcohol intake: never Substance/Drug Use: never Data Anesthesia Cardiac Studies: Echocardiogram 06/06/23
--- NOTE | 2025-08-26 09:08 | W.PM.OPSFHP ---
Same Day Surgery H&P Indication for Procedure/HPI DATE OF PROCEDURE: August 26, 2025 CHIEF COMPLAINT/INDICATIONFOR SURGICAL PROCEDURE: GERD heartburn PREOP DIAGNOSIS: GERD heartburn PLANNED PROCEDURE: Operation Date: 08/26/25 09:15 Proposed Procedures p EGD EGD with Biopsy [id number](Not Applicable) - Lee De León MD Medications/Allergies* Home Medications ?Medication ?Instructions ?Recorded ?Confirmed ?Type gabapentin 600 mg tablet 600 mg PO BID 08/26/25 08/26/25 History pantoprazole 40 mg tablet,delayed 40 mg PO DAILY 08/26/25 08/26/25 History release (Protonix) Allergies/Adverse Reactions Allergy/AdvReac Type Severity Reaction Status Date / Time No Known Allergies Allergy Verified 08/22/25 08:37 Current Medications: Generic Name Dose Route Start Last Admin Trade Name Freq PRN Reason Stop Dose Admin Sodium Chloride 1,000 mls @ 15 mls/hr 08/26/25 08:21 08/26/25 08:50 Sodium Chloride 0.9% IV 08/27/25 08:20 15 mls/hr .Q24H PRN Administration COLONOSCOPY FLUIDS Pertinent History/Comorbid Conditions* Medical History (Updated 07/21/25 @ 09:38 by Lee De León MD) Calcaneal spur of left foot Osteoarthritis of left AC (acromioclavicular) joint Impingement syndrome, shoulder, left Epilepsy Neuropathy Gout Episcleritis of both eyes Hx of seizure disorder Surgical History (Updated 02/07/25 @ 10:11 by Abdon Carranza DPM) History of ankle surgery Right ankle Hx of colonoscopy History of 3 sections Family History (Updated 03/21/23 @ 10:37 by Jo-Ann Calvin LPN) Brother Brother Father Mother Diabetes Heart disease Hyperlipidemia Chronic kidney disease (CKD) Mother, Onset Age: 77 Cancer Father throat cancer Brother liver cancer Brother colan cancer Hypertension Stroke Denies family history of Clotting disorder Anesthesia complication Bleeding disorder Social History Smoking and tobacco/nicotine status: never used tobacco/nicotine Alcohol intake: never Substance/Drug Use: never Pertinent Exam Findings alert, oriented x 3, clear to auscultation bilaterally, regular rate & rhythm and procedure specific exam findings abdomen soft, nt, nd Recommendations Risks and benefits of procedure reviewed and Patient/family agree to proceed Surgery/Procedure today Coding Level of Care Code Acute Code for Chg Fwd
[2025-08-26 09:27] VITALS: BP 115/69; PULSE 63; RESP 18; TEMP 36.1; O2SAT 97
[2025-08-26 09:52] VITALS: BP 132/75; PULSE 56; RESP 16; O2SAT 97
--- NOTE | 2025-08-26 09:55 | ANE.PACU2 ---
Inpatient post-anesthesia follow up: Airway intact: Yes Vital signs: Temperature 97 F Pulse Rate 56 Respiratory Rate 16 Blood Pressure 132/75 Pulse Oximetry 97 Oxygen Delivery Me thod Room Air Oxygen Flow Rate Fraction of Inspir ed Oxygen Hydration adequate: Yes Nausea and vomiting: No Pain level: 1 Mental status: Baseline
== END 2025-08-26 09:55 | disposition home or self-care (01) ==
PROVIDERS: PCP Family Medicine; Visit Provider Student in an Organized Health Care Education/Training Program
PROC: 0DJ08ZZ Inspection of Upper Intestinal Tract, Via Natural or Artificial Opening Endoscopic (ICD-10-PCS; principal; 2025-08-26 09:15)
DX: K21.9 Gastro-esophageal reflux disease without esophagitis (principal); R12 Heartburn; K29.50 Unspecified chronic gastritis without bleeding; G40.909 Epilepsy, unspecified, not intractable, without status epilepticus; I10 Essential (primary) hypertension; I49.9 Cardiac arrhythmia, unspecified; E66.01 Morbid (severe) obesity due to excess calories; Z68.42 Body mass index [BMI] 45.0-49.9, adult
CPT/HCPCS: 43239; 88305; 88342; J2704; J7030

== ENCOUNTER 2025-10-27 08:38 | Emergency (ER) | payer BC, MEDICAID, SELFPAY ==
[2025-10-27 08:45] VITALS: BP 156/83; PULSE 96; RESP 18; TEMP 36.6; O2SAT 96; BMI 36.8
--- NOTE | 2025-10-27 08:51 | ED_ITS ---
HPI - Back Pain/Injury 2 General: Chief Complaint: Back Pain/Injury Stated Complaint: right side back pain Time Seen by Provider: 10/27/25 08:49 History of Present Illness: 60-year-old woman with a histor y of migraines, GERD, epilepsy, depression, hypertension and neuropathy who presents emergency room with right mid/low back pain. She complains of pain that is been going on for couple of days. Worse with movement. Anytime she sits up or turns she winces in pain. She is concerned it might be a kidney stone. She has had no dysuria. No fevers. No saddle numbness, no fecal or urinary retention or incontinence, no focal motor deficit, no sensory deficit. Related Data Home Medications ?Medication ?Instructions ?Recorded ?Confirmed gabapentin 600 mg tablet 600 mg PO BID 08/26/2509/08 Previous Rx's ?Medication ?Instructions ?Recorded topiramate 50 mg tablet 50 mg PO BID #180 tabs 03/21 acetaminophen 650 mg 650 mg PO Q8H PRN pain #90 t abs 08/01/25 tablet,extended release (Tylenol Arthritis Pain) atenolol 25 mg tablet 25 mg PO DAILY #90 tabs 04/20 citalopram 20 mg tablet 20 mg PO DAILY #90 tabs 04/20 furosemide 20 mg tablet 20 mg PO DAILY #90 tabs 04/20 prednisone 20 mg tablet 40 mg (2 x 20 mg) PO DAILY 5 days 08/01/25 #10 tabs pantoprazole 40 mg tablet,delayed 40 mg PO BID 6 month s #360 tabs 08/26/25 release (Protonix) sucralfate 100 mg/mL oral 1 g (10 mL) PO Q6H 6 months #7,200 08/26/25 suspension mL cyclobenzaprine 10 mg tablet 10 mg PO Q8H PRN muscle s pasm #20 10/27/25 tabs hydrocodone 5 mg-acetaminophen 325 1 tab PO Q6H PRN pa in #20 tabs 10/27/25 mg tablet polyethylene glycol 3350 17 17 g PO DAILY #510 grams 1 12/28/24 gram/dose oral powder (Miralax) prednisone 20 mg tablet 60 mg (3 x 20 mg) PO DAILY # 20 tabs 10/27/25 Allergies Allergy/AdvReac Type Severity Reaction Status Date / Time No Known Allergies Allergy Verified 09/08/25 11:03 Review of Systems 2 Narrative: Constitutional symptoms: Negative except as documented in HPI. Skin symptoms: Negative except as documented in HPI. Eye symptoms: Negative except as documented in HPI. ENMT symptoms: Negative except as documented in HPI. Respiratory symptoms: Negative except as documented in HPI. Cardiovascular symptoms: Negative except as documented in HPI. Gastrointestinal symptoms: Negative except as documented in HPI. Genitourinary symptoms: Negative except as documented in HPI. Musculoskeletal symptoms: Negative except as documented in HPI. Neurologic symptoms: Negative except as documented in HPI. Psychiatric symptoms: Negative except as documented in HPI. Endocrine symptoms: Negative except as documented in HPI. PFSH ED 2 PFSH: Medical History (Updated 10/27/25 @ 10:09 by Vanessa Pillai MD) Calcaneal spur of left foot Osteoarthritis of left AC (acromioclavicular) joint Impingement syndrome, shoulder, left Epilepsy Neuropathy Gout Episcleritis of both eyes Hx of seizure disorder Surgical History History of ankle surgery Right ankle Hx of colonoscopy History of 3 sections Family History Mother Chronic kidney disease (CKD), Onset Age: 77 Father Cancer throat cancer Brother Cancer liver cancer Brother Cancer colan cancer Other Diabetes Heart disease Hyperlipidemia Hypertension Stroke Denies family history of Clotting disorder Anesthesia complication Bleeding disorder Social History Smoking and tobacco/nicotine status: never used tobacco/nicotine Alcohol intake: never Substance/Drug Use: never Physical Exam 2 Narrative: EXAM NARRATIVE: General: Alert, no acute distress. Head: Normocephalic Neck: Trachea midline Eye: Extraocular movements are intact. Ears, nose, mouth and throat: Oral mucosa moist Respiratory: Respirations are non-labored Musculoskeletal: Normal ROM Back: no step off, no focal tenderness, some paraspinal muscle tenderness Neurological: Alert and oriented, No focal neurological deficit observed. Psychiatric: Cooperative, appropriate mood & affect. Course 2 Vital Signs: Vital signs: Vital Signs Temperature 97.8 F 10/27/25 08:45 Pulse Rate 96 10/27/25 08:45 Respiratory Rate 18 10/27/25 08:45 Blood Pressure 156/83 10/27/25 08:45 Pulse Oximetry 96 10/27/25 08:45 MDM - Back Pain/Injury Medical Decision Making Medical decision making Patient's reason for coming to the emergency room: Low back pain Social determinants: Patient is retired. Accompanied by her son. I reviewed the patient's medical record. 60-year-old woman with a history of migraines, GERD, epilepsy, depression, hypertension and neuropathy I reviewed the patient's current home meds Patient takes citalopram and atenolol along with Topamax chronically Alternate historians: None Differential diagnosis including but not limited to and based on the above HPI, review of systems and physical exam: In this patient with flank pain would have concern for: Ureterolithiasis. Urinary tract infection. Appendicitis. Cholecystitis. Musculoskeletal / back pain. Pyelonephritis. Orders placed to evaluate differential diagnosis based on the above differential, HPI and physical exam Lab Review: Laboratory results were reviewed and interpreted by myself the emergency room physician. No leukocytosis. No anemia. No renal failure. No urinary tract infection. No hematuria. CT of the abdomen pelvis with kidney protocol: No acute process. No hydronephrosis. This was reviewed and interpreted by myself the emergency room physician. I also reviewed the radiology report. Reexamination: Still with some back pain. Patient remained stable. No increased work of breathing. No altered mental status. No focal motor deficits. Assessment and plan: Musculoskeletal back pain ?[place] and [place] in the emergency room - Discharged home - Discussed plan with patient. Answered any questions. - Evaluation and treatment of this problem were appropriate in the emergency setting. Labs 10/27/25 09:27 10/27/25 09:27 Radiology Impressions Abdomen/Pelvis CT 10/27/25 08:52 IMPRESSION: 1. No hydronephrosis in either kidney. No obstructing renal or ureteral calculi. 2. Small esophageal hernia. 3. Normal appendix. 4. No acute findings. Lumbar Spine CT 10/27/25 08:52 IMPRESSION: 1. Mild lumbar curve. No acute compression fractures. 2. Mild central canal stenosis L4-5 with narrowing of the subarticular recess. 3. Tiny central protrusion L5-S1 with slight contact of the traversing S1 nerve roots. Thoracic Spine CT 10/27/25 08:52 IMPRESSION: No acute thoracic spine findings. Laboratory Results WBC 4.27 10^3/uL (3.29-11.43) 10/27/25 09: RBC 4.50 10^6/uL (3.85-5.65) 10/27/25 09:27 Hgb 13.50 g/dL (11.27-16.99) 10/27/25 09: Hct 41.7 % (36-47) 10/27/25 09: MCV 92.7 fl (85-98) 10/27/25 09:27 MCH 30.0 pg (27-33) 10/27/25 09: MCHC 32.4 g/dL (30-55) 10/27/25 09: RDW 13.6 % (12.1-15.1) 10/27/25 09: Plt Count 264 10^3/cmm (157-399) 10/27/25 09: MPV 9.9 fL (7.4-10.4) 10/27/25 09:27 Neut % (Auto) 61.8 % 10/27/25 09:27 Lymph % (Auto) 23.0 % 10/27/25 09:27 [place] % (Auto) 10.3 % 10/27/25 09:27 Eos % (Auto) 4.2 % 10/27/25 09: Baso % (Auto) 0.5 % 10/27/25 09:27 Neut # (Auto) 2.64 10^3/uL (1.8-7.7) 10/27/25 09: Lymph # (Auto) 1.0 10^3/uL (0.8-4.8) 10/27/25 09:27 [place] # (Auto) 0.4 10^3/uL (0.2-0.9) 10/27/25 09: Eos # (Auto) 0.2 10^3/uL (0.0-0.8) 10/27/25 09: Baso # (Auto) 0.0 10^3/uL (0.0-0.1) 10/27/25 09: Nucleated RBC % (auto) 0 % 10/27/25 09: Nucleated RBCs # 0.0 /100WBC 10/27/25 09:27 Sodium 140 mmol/L (136-145) 10/27/25 09:27 Potassium 4.4 mmol/L (3.5-5.1) 10/27/25 09:27 Chloride 106 mmol/L (98-107) 10/27/25 09:27 Carbon Dioxide 27 mmol/L (22-29) 10/27/25 09:27 Anion Gap 11.4 (5-19) 10/27/25 09:27 BUN 14 mg/dL (8-23) 10/27/25 09:27 Creatinine 1.0 mg/dL (0.5-0.9) H 10/27/25 09:27 GFR Calculation 56.4 mL/min (90-130) L 10/27/25 09:27 Glucose 98 mg/dL (65-115) 10/27/25 09: Calculated Osmolality 290 mOsm/kg (285-295) 10/27/25 09: Calcium 9.2 mg/dL (8.5-10.5) 10/27/25 09:27 Total Bilirubin 0.2 mg/dL (0.15-1.2) 10/27/25 09:27 AST 17 U/L (0-32) 10/27/25 09:27 ALT 14 U/L (0-33) 10/27/25 09:27 Alkaline Phosphatase 106 U/L (35-105) H 10/27/25 09:27 Total Protein 6.6 g/dL (6.6-8.7) 10/27/25 09:27 Albumin 4.0 g/dL (3.5-5.2) 10/27/25 09:27 Globulin 2.6 g/dL (1.3-4.6) 10/27/25 09:27 Urine Color Yellow (Yellow) 10/27/25 09:45 Urine Appearance Clear (CLEAR) 10/27/25 09:45 Urine pH 5.5 (5-7) 10/27/25 09:45 Ur Specific [place] 1.024 (1.005-1.030) 10/27/25 09:45 Urine Protein Trace (Negative) A 10/27/25 09:45 Urine Glucose (UA) Negative (Normal) 10/27/25 09:45 Urine Ketones Negative (Negative) 10/27/25 09:45 Urine Blood Negative (Negative) 12/01/25 09:45 Urine Nitrate Negative (Negative) 10/27/25 09:45 Urine Bilirubin Negative (Negative) 10/27/25 09:45 Urine Urobilinogen 1.0 mg/dL (Negative) 10/27/25 09:45 Ur Leukocyte Esterase Negative (Negative) 10/27/25 09:45 Urine RBC 0-2 /hpf (0-2) 10/27/25 09:45 Urine WBC 0-5 /hpf (0-5) 10/27/25 09:45 Ur Squamous Epith Cells 0-5 /hpf (0-5) 10/27/25 09:45 Amorphous Sediment Not Reportable 10/27/25 09:45 Urine Bacteria 1+ /hpf (NONE) H 10/27/25 09:45 Hyaline Casts 0.81 /lpf 10/27/25 09:45 All radiology interpretation(s) finalized by discharge Discharge Plan Discharge Patient Disposition: Home Clinical Impression: Lumbar strain Condition: Stable Prescriptions: New cyclobenzaprine 10 mg tablet 10 mg PO Q8H PRN (Reason: muscle spasm) Qty: 20 0RF hydrocodone-acetaminophen 5-325 mg tablet 1 tab PO Q6H PRN (Reason: pain) Qty: 20 0RF prednisone 20 mg tablet 60 mg PO DAILY Qty: 20 0RF Rx Instructions: 3 tabs (60 mg) x 3 days. 2 tabs (40 mg) x 3 days. 1 tab (20 mg) x 3 days. 1/2 tab (10 mg) x 4 days polyethylene glycol 3350 [Miralax] 17 gram/dose powder 17 g PO DAILY Qty: 510 0RF Rx Instructions: Take 1 scoop daily while taking pain medications. No Action furosemide 20 mg tablet 20 mg PO DAILY Qty: 90 1RF Rx Instructions: Take 1 tablet by mouth once daily citalopram 20 mg tablet 20 mg PO DAILY Qty: 90 1RF atenolol 25 mg tablet 25 mg PO DAILY Qty: 90 1RF prednisone 20 mg tablet 40 mg PO DAILY 5 Days Qty: 10 0RF acetaminophen [Tylenol Arthritis Pain] 650 mg tablet extended release 650 mg PO Q8H PRN (Reason: pain) Qty: 90 1RF topiramate 50 mg tablet 50 mg PO BID Qty: 180 1RF gabapentin 600 mg tablet 600 mg PO BID pantoprazole [Protonix] 40 mg tablet,delayed release (DR/EC) 40 mg PO BID 180 Days Qty: 360 0RF sucralfate 100 mg/mL suspension 1 g PO Q6H 180 Days Qty: 7200 0RF Discharge Orders: Discharge ED (Routine); Ordered 10/27/25 Ordered By: Vanessa Pillai Referrals: Saul Samaniego DO [Physician, Orthopedics] Referral Note: Call for follow-up or have your primary provider refer you to see Dr. Samaniego with orthopedics if your back pain continues Aashish Chew MD [Primary Care Provider, Family Practice] Discharge Activity: Increase activity as tolerated Patient Instructions: Low Back Strain (ED), Opioid Safety, Pain Management, Patient Portal & Mónica Instructions Activity Restrictions/Additional Instructions: Thank you for choosing [facility] for your healthcare needs today. You have been screened and evaluated and felt safe for discharge. Health conditions do change or evolve sometimes and as such it is important that you follow up with your Primary Doctor to be re checked, 3-5 days is a general good time frame for follow up. You are always welcome to return to the ED for re assessment if your symptoms are worsening or you have new concerns Print Language: Syriac Coding Level of Care Code ED Drilling Inspector for Rick Washburn
--- NOTE | 2025-10-27 08:52 | CT_ITS ---
WS: [id number] CT THORACIC SPINE TECHNIQUE: Noncontrast CT of the thoracic spine with coronal and sagittal reformatted images. CLINICAL INFORMATION: mid back pain COMPARISON: None. DLP: 740.[address] scans at [facility] use at least one of these dose optimization techniques: automated exposure control; mA and/or kV adjustment per patient size (includes targeted exams where dose is matched to clinical indication); or iterative reconstruction. FINDINGS: Mild thoracic curve. Moderate thoracic kyphosis. Hypertrophic changes thoracic spine. No acute appearing compression fractures. Spinal canal appears patent. Adrenal glands are normal. Small esophageal hiatal hernia. Tiny noncalcified nodule RIGHT upper lobe. A few tiny micronodules in both upper lobes. Cardiomegaly. Aortic calcification. CT/CT thoracic spin wo con* [id number] IMPRESSION: No acute thoracic spine findings.
--- NOTE | 2025-10-27 08:52 | CT_ITS ---
WS: [id number] CT LUMBAR SPINE TECHNIQUE: Noncontrast CT of the lumbar spine with coronal and sagittal reformatted images. CLINICAL INFORMATION: low back pain COMPARISON: None. DLP: 1825.[address] scans at [facility] use at least one of these dose optimization techniques: automated exposure control; mA and/or kV adjustment per patient size (includes targeted exams where dose is matched to clinical indication); or iterative reconstruction. FINDINGS: Mild lumbar curve. Slight anterolisthesis L4 on L5. L1-L2: Normal. L2-L3: Normal L3-L4: Mild annular bulging. Moderate facet arthropathy. Spinal canal foramina are patent. L4-L5: Mild annular bulging with mild central canal stenosis and narrowing of the subarticular recess. Moderate facet arthropathy. Mild LEFT greater than RIGHT foraminal narrowing. L5-S1: Tiny central disc protrusion. Slight contact of the traversing LEFT greater than RIGHT S1 nerve roots. Mild LEFT greater than RIGHT foraminal narrowing. Visualized pelvic bony structures: Normal. Paravertebral soft tissues: Normal. CT/CT lumbar spine wo con* [id number] IMPRESSION: 1. Mild lumbar curve. No acute compression fractures. 2. Mild central canal stenosis L4-5 with narrowing of the subarticular recess. 3. Tiny central protrusion L5-S1 with slight contact of the traversing S1 nerv e roots.
--- NOTE | 2025-10-27 08:52 | CT_ITS ---
WS: [id number] CT ABDOMEN PELVIS TECHNIQUE: Noncontrast CT of the abdomen and pelvis with coronal and sagittal reformatted images. CLINICAL INFORMATION: flank pain COMPARISON: None. DLP: 966.[address] scans at [facility] use at least one of these dose optimization techniques: automated exposure control; mA and/or kV adjustment per patient size (includes targeted exams where dose is matched to clinical indication); or iterative reconstruction. FINDINGS: No hydronephrosis in either kidney. Adrenal glands are normal. No obstructing renal or ureteral calculi. Mild hepatomegaly. Normal noncontrast spleen.. Small esophageal hiatal hernia. Normal noncontrast pancreas. Normal caliber abdominal aorta. Mild aortic calcification. Small fat-containing umbilical hernia. Sigmoid diverticulosis. No evidence of acute diverticulitis. No evidence of acute appendicitis. Bibasilar atelectasis. Small fat-containing umbilical hernia. CT/CT kidney stone [id number] IMPRESSION: 1. No hydronephrosis in either kidney. No obstructing renal or ureteral calcul i. 2. Small esophageal hernia. 3. Normal appendix. 4. No acute findings.
[2025-10-27 09:19] VITALS: BP 132/64; PULSE 59; O2SAT 100
[2025-10-27 09:40] LABS: Hematocrit 41.7 % (36-47); Hemoglobin 13.50 g/dL (11.27-16.99); Mean Corpuscular HGB Conc 32.4 g/dL (30-55); Mean Corpuscular Hemoglobin 30.0 pg (27-33); Mean Corpuscular Volume 92.7 fl (85-98); Nucleated Red Blood Cells % 0 %; Platelet Count 264 10^3/cmm (157-399); Red Blood Count 4.50 10^6/uL (3.85-5.65); White Blood Count 4.27 10^3/uL (3.29-11.43)
[2025-10-27 09:49] VITALS: BP 135/93; PULSE 58; O2SAT 100
[2025-10-27 10:03] LABS: Alanine Aminotransferase 14 U/L (0-33); Albumin Level 4.0 g/dL (3.5-5.2); Alkaline Phosphatase 106 U/L (35-105); Anion Gap 11.4 (5-19); Aspartate Amino Transferase 17 U/L (0-32); Blood Urea Nitrogen 14 mg/dL (8-23); Calcium 9.2 mg/dL (8.5-10.5); Carbon Dioxide 27 mmol/L (22-29); Chloride 106 mmol/L (98-107); Globulin 2.6 g/dL (1.3-4.6); Glucose 98 mg/dL (65-115); Osmolality Calculated 290 mOsm/kg (285-295); Potassium 4.4 mmol/L (3.5-5.1); Sodium 140 mmol/L (136-145); Total Protein 6.6 g/dL (6.6-8.7)
[2025-10-27 10:20] LABS: Glucose Urine UA Negative (Normal); Nitrate Urine Negative (Negative); Specific Gravity, Urine 1.024 (1.005-1.030)
[2025-10-27] MEDS: HYDROcodone-acetaminophen 10-325 mg Tablet 1 TAB PO (10:41)
[2025-10-27 11:09] VITALS: BP 136/83; PULSE 57; O2SAT 99
== END 2025-10-27 11:12 | disposition home or self-care (01) ==
PROVIDERS: Emergency Provider Emergency Medicine; PCP Family Medicine
DX: S39.012A Strain of muscle, fascia and tendon of lower back, initial encounter (principal); X58.XXXA Exposure to other specified factors, initial encounter
CPT/HCPCS: 36415; 72128; 72131; 74176; 80053; 81001; 85025; 96372; 99284; J1100; J9999